=== PATIENT | male | born 1980 | race American Indian/Alaskan Native ===

== ENCOUNTER 2020-05-29 09:20 | Emergency (ER) | payer OTHER, SELFPAY ==
[2020-05-29 09:35] VITALS: BP 127/75; PULSE 70; RESP 16; TEMP 37; O2SAT 100; BMI 32.1
[2020-05-29 10:00] LABS: MANUAL DIFF FLAG NO
[2020-05-29 10:01] LABS: Basophils Percent Auto 0.4 % (0-2); Eosinophils Absolute Auto 0.1 X10*3/uL (0.0-0.4); Eosinophils Percent Auto 1.8 % (0-4); Hematocrit 38.3 % (42-52); Hemoglobin 12.8 g/dl (14.0-18.0); Imm Gran Abs Auto 0.02 X10*3/uL (0.00-0.03); Imm Gran Pct Auto 0.4 % (0.0-0.4); Lymphocytes Absolute Auto 1.9 X10*3/uL (1.2-4.9); Mean Corpuscular HGB Conc 33.4 g/dl (31.0-36.0); Mean Corpuscular Hemoglobin 29.3 pg (27.0-33.0); Mean Corpuscular Volume 87.6 fL (80-98); Mean Platelet Volume 9.7 fL (9.4-12.4); Monocytes Absolute Auto 0.7 X10*3/uL (0.1-1.2); Monocytes Percent Auto 12.3 % (2-11); Neutrophils Absolute Auto 2.9 X10*3/uL (2.0-8.3); Neutrophils Percent Auto 52.1 % (45-73); Platelet Count 157 X10*3/uL (160-400); Red Blood Count 4.37 X10*6/uL (4.60-5.80); Red Cell Distribution Width 11.7 % (11.0-16.0); White Blood Count 5.6 X10*3/uL (4.8-10.8)
[2020-05-29 10:29] LABS: Lactic Acid 1.1 mmol/L (0.5-2.0)
--- NOTE | 2020-05-29 10:34 | PC.NURSE ---
PT DECLINES TO HAVE BLOOD REDRAWN AND WANTS TO BE DISCHARGED, CLAUDIA MCKEE AWARE, PT TO BE DISCHARGED AMA
[2020-05-29 10:37] LABS: Glucose Urine UA NEG (NEG); Leukocyte Esterase Urine NEG (NEG); Nitrite Urine NEG (NEG); PH 5.5 (5.0-8.0); Specific Gravity - Urine 1.025 (1.005-1.025); Urine Blood NEG (NEG); Urine Ketones NEG (NEG); Urine Protein NEG (NEG-TRACE)
[2020-05-29 10:38] LABS: Appearance Urine CLEAR; Color Urine YELLOW
--- NOTE | 2020-05-29 10:46 | ED_ITS ---
HPI - General Adult General Chief complaint: General Medical Stated complaint: INFECTION RT ARM Time Seen by Provider: 05/29/20 09:28 Source: patient Mode of arrival: ambulatory Limitations: no limitations History of Present Illness HPI narrative: 39-year-old male who reports he has history of asthma and longstanding history of IV drug use preferred IV heroin which she last used about 6 hours prior to arrival and presents today with complaint of redness and streaking away type a rash to the right inner arm at the site where he injected heroin last night. States he feels ?fine? however the redness that is streaking weight from the injection site concerned him and came to emergency room. He otherwise denies any fever or chills. No swelling. No chest pain or shortness of breath. No back pain. No GI symptoms. Onset (ago): day(s) Location: right and upper extremity Radiation: non-radiation Severity: mild and moderate Associated symptoms: denies other symptoms Treatments prior to arrival: none Related Data Previous Rx's Medication Instructions Recorded cephalexin [Keflex] 500 mg PO BID #20 cap 05/29/20 doxycycline monohydrate 100 mg PO BID 10 Days #20 cap 05/29/20 Allergies Allergy/AdvReac Type Severity Reaction Status Date / Time No Known Allergies Allergy Unverified 03/16/20 15:58 Review of Systems Review of Systems: Constitutional: No Weight loss, No Fever, No Chills, No Night Sweats, No Fatigue, No Malaise ENT/Mouth: No Hearing loss, No Ear Pain, No Nasal Congestion, No Sinus Pain, No Hoarseness, No sore throat, No Rhinorrhea, No Swallowing Difficulty Eyes: No Eye Pain, No Swelling, No Redness, No Foreign Body, No Discharge, No Vision Changes Cardiovascular: No Chest Pain, No SOB, No Dyspnea on Exertion, No Orthopnea, No Edema, No Palpitations Respiratory: No Cough, No Sputum, No Wheezing, No Smoke Exposure, No Dyspnea Gastrointestinal: No Nausea, No Vomiting, No Diarrhea, No Constipation, No abdominal Pain, No Hematochezia, No Melena Genitourinary: No Flank Pain, No Urinary Flow Changes, No Hesitancy Musculoskeletal: No joint pain, No Myalgias, No Joint Swelling Skin: As noted in HPI Neuro: No Weakness, No Numbness, No Paresthesias, No Loss of Consciousness, No Dizziness, No Headache Psych: No Anxiety/Panic, No Depression, No SI/HI/AH/VH, No Social Issues Heme/Lymph: No Bruising, No Bleeding,No Lymphadenopathy Endocrine: No Polyuria, No Polydipsia, No Temperature Intolerance Yes all other systems are reviewed and are negative [facility] Past Medical History Medical History Asthma Social History Social History Advance Directives: No Advance Directives Information Provided: No Physical Exam Vital Signs: Vital Signs: Last Vital Signs Temp 98.6 F 05/29/20 09:35 Pulse 70 05/29/20 09:35 Resp 16 05/29/20 09:35 BP 127/75 05/29/20 09:35 Pulse Ox 100 05/29/20 09:35 Body Mass Index 32.1 Reviewed Const: General: cooperative and healthy appearing; No acute distress or intoxicated appearing Nutritional Appearance: average body habitus [place] ation/consciousness: patient oriented x3 HENMT: Head: Yes normal to inspection Ears: hearing grossly normal bilaterally Eyes: General: appearance normal, both eyes and all related structures Visual Mace: normal visual mace by confrontation Neck: Neck: Yes normal visual inspection and No tender Thyroid: Thyroid normal Chest: Chest palpation & inspection: normal inspection of the chest Resp: Effort & Inspection: normal respiratory effort Auscultation: clear to auscultation bilaterally Cardio: Jugular venous distension: no JVD Rate: regular rate GI: Inspection: Yes normal to inspection Percussion: Yes normal to percussi on Auscultation: normal bowel sounds : General: Yes no CVA tenderness Back/Spine/Pelvis: Back: no CVA tenderness Skin: General skin exam: no rashes or lesions noted Neuro: General: patient oriented x3 Extrem: Other: General: Yes normal to inspection Course Course Course Narrative: CBC without leukocytosis. Negative lactic acid chemistries hemolyzed patient declined the redraw. AP with IVD cellulitis was slight lymphangitis. No evidence of necrosis. No evidence of abscess formation. No signs of systemic infection. Blood cultures are pending. I did advise him if he gets worsening symptoms or blood cultures come back positive he will need admission at this point he does not want this. He will be discharged home with oral antibiotics with clear return follow-up instructions. Cell [phone] Medical Decision Making Lab Data Lab results reviewed: Yes I reviewed the patient's lab results. Result diagrams: 05/29/20 09:52 05/29/20 09:52 Labs: Lab Results 05/29/20 05/29/20 05/29/20 Range/Units 09:52 09:52 09:52 WBC 5.6 (4.8-10.8) X10*3/uL RBC 4.37 L (4.60-5.80) X10*6/uL Hgb 12.8 L (14.0-18.0) g/dl Hct 38.3 L (42-52) % MCV 87.6 (80-98) fL MCH 29.3 (27.0-33.0) pg MCHC 33.4 (31.0-36.0) g/dl RDW 11.7 (11.0-16.0) % Plt Count 157 L (160-400) X10*3/uL MPV 9.7 (9.4-12.4) fL Immature Gran % (Auto) 0.4 (0.0-0.4) % Neut % (Auto) 52.1 (45-73) % Lymph % (Auto) 33.0 (20-40) % [place] % (Auto) 12.3 H (2-11) % Eos % (Auto) 1.8 (0-4) % Baso % (Auto) 0.4 (0-2) % Lymph # (Auto) 1.9 (1.2-4.9) X10*3/uL [place] # (Auto) 0.7 (0.1-1.2) X10*3/uL Eos # (Auto) 0.1 (0.0-0.4) X10*3/uL Baso # (Auto) 0.0 (0.0-0.2) X10*3/uL Abs Immat Gran (auto) 0.02 (0.00-0.03) X10*3/uL Absolute Neuts (auto) 2.9 (2.0-8.3) X10*3/uL Absolute Nucleated RBC 0.000 (0.0-0.012) X10*3/uL Nucleated RBC % (auto) 0.0 (0.0-0.2) /100WBC Sodium Cancelled Potassium Cancelled Chloride Cancelled Carbon Dioxide Cancelled Anion Gap Cancelled BUN Cancelled Creatinine Cancelled Estim Creat Clear Calc Cancelled Estimated GFR Cancelled Random Glucose Cancelled Lactic Acid 1.1 (0.5-2.0) mmol/L Calcium Cancelled Total Bilirubin Cancelled AST Cancelled ALT Cancelled Alkaline Phosphatase Cancelled Total Protein Cancelled Albumin Cancelled Urine Color Urine Appearance Urine pH (5.0-8.0) Ur Specific [place] (1.005-1.025) Urine Protein (NEG-TRACE) MG/DL Urine Glucose (UA) (NEG) MG/DL Urine Ketones (NEG) MG/DL Urine Blood (NEG) Urine Nitrite (NEG) Ur Leukocyte Esterase (NEG) 05/29/20 Range/Units 10:06 WBC (4.8-10.8) X10*3/uL RBC (4.60-5.80) X10*6/uL Hgb (14.0-18.0) g/dl Hct (42-52) % MCV (80-98) fL MCH (27.0-33.0) pg MCHC (31.0-36.0) g/dl RDW (11.0-16.0) % Plt Count (160-400) X10*3/uL MPV (9.4-12.4) fL Immature Gran % (Auto) (0.0-0.4) % Neut % (Auto) (45-73) % Lymph % (Auto) (20-40) % [place] % (Auto) (2-11) % Eos % (Auto) (0-4) % Baso % (Auto) (0-2) % Lymph # (Auto) (1.2-4.9) X10*3/uL [place] # (Auto) (0.1-1.2) X10*3/uL Eos # (Auto) (0.0-0.4) X10*3/uL Baso # (Auto) (0.0-0.2) X10*3/uL Abs Immat Gran (auto) (0.00-0.03) X10*3/uL Absolute Neuts (auto) (2.0-8.3) X10*3/uL Absolute Nucleated RBC (0.0-0.012) X10*3/uL Nucleated RBC % (auto) (0.0-0.2) /100WBC Sodium Potassium Chloride Carbon Dioxide Anion Gap BUN Creatinine Estim Creat Clear Calc Estimated GFR Random Glucose Lactic Acid (0.5-2.0) mmol/L Calcium Total Bilirubin AST ALT Alkaline Phosphatase Total Protein Albumin Urine Color YELLOW Urine Appearance CLEAR Urine pH 5.5 (5.0-8.0) Ur Specific [place] 1.025 (1.005-1.025) Urine Protein NEG (NEG-TRACE) MG/DL Urine Glucose (UA) NEG (NEG) MG/DL Urine Ketones NEG (NEG) MG/DL Urine Blood NEG (NEG) Urine Nitrite NEG (NEG) Ur Leukocyte Esterase NEG (NEG) Discharge Plan Discharge Clinical Impression: Cellulitis, Lymphangitis, Active intravenous drug use Patient Disposition: Home, Self-Care Instructions: Cellulitis (ED), Polysubstance Abuse (ED) Additional Instructions: Please stop using IV drugs as this can cause serious harm to health and Seek detox as discussed with to follow up with [facility] As it relates to the infection in the right arm Starting antibiotics Have recheck in 2 days We will call you with the blood culture results if positive he will need to come back to the emergency room and may require admission Return if any concerns or worsening symptoms including worsening redness, swelling, pain, fever, chest pain, shortness of breath in addition to any other concerning symptoms. Thank you Prescriptions: New doxycycline monohydrate 100 mg capsule 100 mg PO BID 10 Days Qty: 20 RF: 0 cephalexin [Keflex] 500 mg capsule 500 mg PO BID Qty: 20 RF: 0 Referrals: Luan Waddell DO [Primary Care Provider] - 2 days Juanpablo Ronquillo NP [Emergency Midlevel Provider] - 2 days (Wound check )
[2020-05-29 10:57] LABS: Mucus Urine TRACE /LPF; RBC Urine 0-2 /HPF (0); Squamous Epithelial Cell Urine TRACE /LPF; WBC Urine 0-2 /HPF (0-4)
[2020-05-29 11:21] LABS: Amphetamine Screen Urine Not Detected (Not Detect); Barbiturates, Urine Not Detected (Not Detect); Benzodiazepines Screen Urine Not Detected (Not Detect); Cannabinoid Screen Urine Not Detected (Not Detect); Cocaine Screen Urine Not Detected (Not Detect); Opiate Screen Urine POSITIVE (Not Detect); Phencyclidine Screen Urine Not Detected (Not Detect)
== END 2020-05-29 11:05 | disposition home or self-care (01) ==
PROVIDERS: Nurse Practitioner Primary Care; Emergency Provider Internal Medicine; PCP Family Medicine Adult Medicine
DX: L03.113 Cellulitis of right upper limb (principal); F11.10 Opioid abuse, uncomplicated
CPT/HCPCS: 36415; 80053; 80307; 81001; 83605; 85025; 87040; 99283

== ENCOUNTER 2020-05-30 08:57 | Outpatient (REF) | payer OTHER, SELFPAY | END 2020-05-30 08:58 | disposition home or self-care (01) | LOC: HO.LAB 08:57 | PROVIDERS: Visit Provider Internal Medicine | DX: Z20.828 Contact with and (suspected) exposure to other viral communicable diseases (principal) | CPT/HCPCS: C9803; U0003 ==

== ENCOUNTER → 2020-06-29 09:49 | Outpatient (BNVA) | payer OTHER, SELFPAY | PROVIDERS: PCP Family Medicine Adult Medicine; Visit Provider Nurse Practitioner Psychiatric/Mental Health | DX: F11.99 Opioid use, unspecified with unspecified opioid-induced disorder (principal) | CPT/HCPCS: 80305; 99202; 99211 ==

== ENCOUNTER → 2020-07-13 14:19 | Outpatient (BNVA) | payer OTHER, SELFPAY | PROVIDERS: Visit Provider Nurse Practitioner Psychiatric/Mental Health | DX: F11.99 Opioid use, unspecified with unspecified opioid-induced disorder (principal) | CPT/HCPCS: 80305; 99212 ==

== ENCOUNTER → 2020-07-27 14:49 | Outpatient (BNVA) | payer OTHER, SELFPAY | PROVIDERS: Visit Provider Nurse Practitioner Psychiatric/Mental Health | DX: F11.99 Opioid use, unspecified with unspecified opioid-induced disorder (principal) | CPT/HCPCS: 80305; 99212 ==

== ENCOUNTER → 2020-08-03 14:03 | Outpatient (BNVA) | payer OTHER, SELFPAY | PROVIDERS: Visit Provider Nurse Practitioner Psychiatric/Mental Health | DX: F11.20 Opioid dependence, uncomplicated (principal) | CPT/HCPCS: 80305; 99211 ==

== ENCOUNTER 2020-08-07 13:01 | Outpatient (REF) | payer OTHER, SELFPAY | END 2020-08-07 13:02 | disposition home or self-care (01) | LOC: HO.LAB 13:01 | PROVIDERS: Visit Provider Internal Medicine | DX: Z20.822 Contact with and (suspected) exposure to COVID-19 (principal) | CPT/HCPCS: 36415; C9803; U0003; U0005 ==

== ENCOUNTER 2020-08-09 02:57 | Emergency (ER) | payer OTHER, SELFPAY ==
--- NOTE | ~2020-08-09 | XR_ITS ---
EXAMINATION: CHEST 2 VIEWS CLINICAL INFORMATION: Dyspnea. COMPARISON: 03/30/2015. TECHNIQUE: PA and lateral views of the chest were obtained. FINDINGS: The cardiac silhouette is not enlarged. The mediastinal and hilar contours are unremarkable. There are neither pleural effusions nor pneumothoraces. There are no consolidations. The osseous structures are stable. XR/XR chest 2V IMPRESSION: No evidence for acute disease.
--- NOTE | 2020-08-09 03:12 | ED_ITS ---
HPI - SOB/Dyspnea General Chief Complaint: General Medical Stated Complaint: CHEMICAL REACTION Time Seen by Provider: 08/09/20 03:05 Source: patient Mode of arrival: ambulatory Limitations: no limitations History of Present Illness HPI Narrative: 39 yo male with asthma was using a bleach and some other chemical mixture to clean after that felt like he has had lung irritation and dyspnea since then, no other compliaints MD elicited complaint: shortness of breath and cough Pertinent past history: asthma Onset (ago): day(s) (1) Context: smoke/fume exposure (using bleach and another chemical to clean) Timing: constant Severity: moderate Exacerbating factors: nothing Relieving factors: nothing Known history of: asthma Associated symptoms: denies other symptoms Treatment prior to arrival: none Related Data Previous Rx's Medication Instructions Recorded prednisone 40 mg PO DAILY 4 Days #8 tab 08/09/20 Allergies Allergy/AdvReac Type Severity Reaction Status Date / Time No Known Allergies Allergy Verified 08/09/20 03:30 Review of Systems Review of Systems: Constitutional : No Fever, No Chills ENT/Mouth : No sore throat, No Rhinorrhea, No Swallowing Difficulty Eyes: No Eye Pain, No Swelling, No Redness Cardiovascular : No Chest Pain, positive SOB, No Orthopnea, no Edema Respiratory : No Cough, No Sputum, No Wheezing, positive dyspnea Gastrointestinal : No Nausea, No Vomiting, No Diarrhea, No abdominal Pain Genitourinary : No Dysuria, No Urinary Frequency, No Hematuria Musculoskeletal : No joint pain, No Myalgias Skin : No Skin Lesions, No rash Neuro : No Weakness, No Numbness, No Dizziness, No Headache All other systems reviewed and are negative [facility] Past Medical History Attestation statement: The following information was validated with the patient. Medical History Asthma Social History Social History (Updated 08/09/20 @ 03:14 by Tammy Bender DO) Smoking Status: Never smoker Advance Directives: No Advance Directives Information Provided: No Physical Exam Vital Signs: Vital Signs: Last Vital Signs Temp 98.1 F 08/09/20 03:26 Pulse 74 08/09/20 03:26 Resp 18 08/09/20 03:26 BP 136/87 08/09/20 03:26 Pulse Ox 98 08/09/20 03:26 Body Mass Index 32.3 Appearance: Alert. Oriented X3. No acute distress. Eyes: Pupils equal, round and reactive to light. ENT: Pharynx normal. Neck: Normal inspection. Neck supple. CVS: Normal heart rate and rhythm. Pulses normal. Respiratory: No respiratory distress. Breath sounds normal. Abdomen: Soft and non-tender. Skin: Skin warm and dry. Normal skin color. Normal skin turgor. Extremities: No lower extremity edema. No calf ttp Neuro: Oriented X 3. No motor deficit. No sensory deficit. MDM - SOB/Dyspnea MDM Narrative Medical decision making narrative: 39 yo male with asthma exposed to chemical fumes c/o lung irritation and tightness since - not toxic, will give INH as well as CXR - dispo per results and findings. May need steroids for pneumonitis Discharge Plan Discharge Clinical Impression: Pneumonitis due to fumes Patient Disposition: Home, Self-Care Instructions: Pneumonitis (ED) Additional Instructions: return to ED for any worsening symptoms or concerns USE INHALER NEEDED FOR DYSPNEA OR COUGH 2 PUFFS EVERY 4 HOURS Prescriptions: New prednisone 20 mg tablet 40 mg PO DAILY 4 Days Qty: 8 RF: 0 Stand Alone Forms: Work/School Release
[2020-08-09 03:26] VITALS: BP 136/87; PULSE 74; RESP 18; TEMP 36.7; O2SAT 98; BMI 32.3
[2020-08-09] MEDS: predniSONE 20 MG TABLET 40 MG PO (04:07)
[2020-08-09] MEDS: Albuterol Sulfate 90 MCG 8 GM INHALER 2 PUFF INHALE (04:08)
== END 2020-08-09 04:12 | disposition home or self-care (01) ==
PROVIDERS: Emergency Provider Emergency Medicine; PCP Family Medicine Adult Medicine
DX: J68.0 Bronchitis and pneumonitis due to chemicals, gases, fumes and vapors (principal)
CPT/HCPCS: 71046; 99283

== ENCOUNTER → 2020-08-10 15:34 | Outpatient (BNVA) | payer OTHER, SELFPAY | PROVIDERS: Visit Provider Nurse Practitioner Psychiatric/Mental Health | DX: F11.99 Opioid use, unspecified with unspecified opioid-induced disorder (principal) | CPT/HCPCS: 80305; 99212 ==

== ENCOUNTER → 2020-08-17 15:49 | Outpatient (BNVA) | payer OTHER, SELFPAY | PROVIDERS: Visit Provider Nurse Practitioner Psychiatric/Mental Health | DX: F11.99 Opioid use, unspecified with unspecified opioid-induced disorder (principal) | CPT/HCPCS: 80305; 99212 ==

== ENCOUNTER → 2020-08-25 14:33 | Outpatient (BNVA) | payer OTHER, SELFPAY | PROVIDERS: Visit Provider Nurse Practitioner Psychiatric/Mental Health | DX: Z51.81 Encounter for therapeutic drug level monitoring (principal) ==

== ENCOUNTER → 2020-08-31 13:57 | Outpatient (BNVA) | payer OTHER, SELFPAY | PROVIDERS: Visit Provider Nurse Practitioner Psychiatric/Mental Health | DX: F11.99 Opioid use, unspecified with unspecified opioid-induced disorder (principal) | CPT/HCPCS: 80305; 99212 ==

== ENCOUNTER 2020-09-07 15:39 | Outpatient (REF) | payer OTHER, SELFPAY ==
[2020-09-07 17:04] LABS: Alanine Aminotransferase 16 U/L (0-40); Albumin Level 4.3 g/dL (3.5-5.0); Alkaline Phosphatase 62 U/L (39-117); Aspartate Amino Transferase 24 U/L (5-37); Bilirubin Direct 0.3 mg/dL (0.0-0.5); Bilirubin Total 0.7 mg/dL (0.0-1.0); Total Protein 7.6 g/dL (6.5-8.0)
[2020-09-08 04:23] LABS: HBS Num1 > 1000.00 mIU/mL (0-7.99); HBc Num1 0.06 S/CO (0.00-0.79); HIV AB/AG Nonreactive (Nonreactive); HIV Num 1 0.08 S/CO (0.00-0.99); Hepatitis B Core Antibody Nonreactive (Nonreactive); ~Hepatitis B Surface Antibody REACTIVE (Nonreactive)
[2020-09-08 04:25] LABS: Hepatitis A Antibody IgM 0.18 Index (0-0.79); ~Hepatitis A Antibody IgM Nonreactive (Nonreactive)
[2020-09-08 04:40] LABS: HBsAGNum1 0.16 S/CO (0.00-0.99); Hepatitis A Antibody IgG REACTIVE (Nonreactive); Hepatitis B Surface Antigen Negative (Negative); ~Hepatitis A Antibody IgG 10.26 S/CO (0.00-0.99)
[2020-09-13 08:06] LABS: Buprenorphine >1000 ng/mL; Norbuprenorphine 72 ng/mL
== END 2020-09-07 15:40 | disposition home or self-care (01) ==
LOC: HO.LAB 15:39
PROVIDERS: PCP Family Medicine Adult Medicine; Visit Provider Nurse Practitioner Psychiatric/Mental Health
DX: F11.20 Opioid dependence, uncomplicated (principal); Z79.899 Other long term (current) drug therapy
CPT/HCPCS: 36415; 80076; 80305; 80348; 86704; 86706; 86708; 86709; 87340; 87389; 99212

== ENCOUNTER 2020-09-14 14:13 | Outpatient (REF) | payer OTHER, SELFPAY ==
[2020-09-16 18:56] LABS: Fentanyl, Ur 0.9 ng/mL (<0.5)
[2020-09-19 10:46] LABS: Buprenorphine >1000 ng/mL; Norbuprenorphine 17 ng/mL
== END 2020-09-14 14:14 | disposition home or self-care (01) ==
LOC: CF 14:13
PROVIDERS: PCP Family Medicine Adult Medicine; Visit Provider Nurse Practitioner Psychiatric/Mental Health
DX: F11.20 Opioid dependence, uncomplicated (principal); Z51.81 Encounter for therapeutic drug level monitoring
CPT/HCPCS: 80305; 80348; 80354; 99212

== ENCOUNTER → 2020-09-21 14:03 | Outpatient (BNVA) | payer OTHER, SELFPAY | PROVIDERS: PCP Family Medicine Adult Medicine; Visit Provider Nurse Practitioner Psychiatric/Mental Health | DX: F11.99 Opioid use, unspecified with unspecified opioid-induced disorder (principal) | CPT/HCPCS: 80305; 99212 ==

== ENCOUNTER → 2020-09-28 11:07 | Outpatient (BNVA) | payer OTHER, SELFPAY | PROVIDERS: PCP Family Medicine Adult Medicine; Visit Provider Nurse Practitioner Psychiatric/Mental Health | DX: F11.99 Opioid use, unspecified with unspecified opioid-induced disorder (principal) | CPT/HCPCS: 80305; 99212 ==

== ENCOUNTER 2020-10-05 11:51 | Outpatient (REF) | payer OTHER, SELFPAY ==
[2020-10-08 06:27] LABS: Fentanyl, Ur NEGATIVE ng/mL (<0.5); Norfentanyl, Ur NEGATIVE ng/mL (<0.5)
[2020-10-09 09:38] LABS: Buprenorphine 670 ng/mL; Norbuprenorphine 340 ng/mL
== END 2020-10-05 11:52 | disposition home or self-care (01) ==
LOC: HO.LAB 11:51
PROVIDERS: PCP Family Medicine Adult Medicine; Visit Provider Nurse Practitioner Psychiatric/Mental Health
DX: F11.99 Opioid use, unspecified with unspecified opioid-induced disorder (principal); Z79.899 Other long term (current) drug therapy
CPT/HCPCS: 80305; 80348; 80354; 99212

== ENCOUNTER → 2020-10-12 11:52 | Outpatient (BNVA) | payer OTHER, SELFPAY | PROVIDERS: Visit Provider Nurse Practitioner Psychiatric/Mental Health | DX: F11.20 Opioid dependence, uncomplicated (principal); Z51.81 Encounter for therapeutic drug level monitoring; Z79.899 Other long term (current) drug therapy | CPT/HCPCS: 99211 ==

== ENCOUNTER → 2020-10-26 11:52 | Outpatient (BNVA) | payer OTHER, SELFPAY | PROVIDERS: Visit Provider Nurse Practitioner Psychiatric/Mental Health | DX: F11.99 Opioid use, unspecified with unspecified opioid-induced disorder (principal) | CPT/HCPCS: 80305; 99212 ==

== ENCOUNTER → 2020-11-02 11:55 | Outpatient (BNVA) | payer OTHER, SELFPAY | PROVIDERS: Visit Provider Nurse Practitioner Psychiatric/Mental Health | DX: F11.99 Opioid use, unspecified with unspecified opioid-induced disorder (principal) | CPT/HCPCS: 80305; 99212 ==

== ENCOUNTER → 2020-11-16 11:58 | Outpatient (BNVA) | payer OTHER, SELFPAY | PROVIDERS: Visit Provider Nurse Practitioner Psychiatric/Mental Health | DX: Z51.81 Encounter for therapeutic drug level monitoring (principal); Z79.899 Other long term (current) drug therapy | CPT/HCPCS: 80305; 99211 ==

== ENCOUNTER → 2020-11-30 11:52 | Outpatient (BNVA) | payer OTHER, SELFPAY | PROVIDERS: Visit Provider Nurse Practitioner Psychiatric/Mental Health | DX: F11.99 Opioid use, unspecified with unspecified opioid-induced disorder (principal) | CPT/HCPCS: 80305; 99212 ==

== ENCOUNTER 2020-12-14 12:03 | Outpatient (REF) | payer OTHER, SELFPAY ==
[2020-12-17 09:39] LABS: Fentanyl, Ur Negative
[2020-12-17 09:40] LABS: Norfentanyl, Ur Negative
[2020-12-19 14:06] LABS: Buprenorphine 160 ng/mL; Norbuprenorphine 180 ng/mL
== END 2020-12-14 12:04 | disposition home or self-care (01) ==
LOC: HO.LAB 12:03
PROVIDERS: Visit Provider Nurse Practitioner Psychiatric/Mental Health
DX: F11.20 Opioid dependence, uncomplicated (principal)
CPT/HCPCS: 80305; 80348; 80354; 99212

== ENCOUNTER → 2020-12-19 13:44 | Outpatient (BNVA) | payer OTHER, SELFPAY | PROVIDERS: Visit Provider Nurse Practitioner Psychiatric/Mental Health | DX: Z51.81 Encounter for therapeutic drug level monitoring (principal) | CPT/HCPCS: 80305; 99211 ==

== ENCOUNTER → 2020-12-28 11:57 | Outpatient (BNVA) | payer OTHER, SELFPAY | PROVIDERS: Visit Provider Nurse Practitioner Psychiatric/Mental Health | DX: Z51.81 Encounter for therapeutic drug level monitoring (principal); F11.99 Opioid use, unspecified with unspecified opioid-induced disorder | CPT/HCPCS: 80305; 99212 ==

== ENCOUNTER → 2021-01-11 14:47 | Outpatient (BNVA) | payer OTHER, SELFPAY | PROVIDERS: Visit Provider Nurse Practitioner Psychiatric/Mental Health | DX: Z51.81 Encounter for therapeutic drug level monitoring (principal) ==

== ENCOUNTER 2021-01-12 10:32 | Outpatient (REF) | payer OTHER, SELFPAY | END 2021-01-12 10:33 | disposition home or self-care (01) | LOC: HO.LAB 10:32 | PROVIDERS: Visit Provider Nurse Practitioner Psychiatric/Mental Health | DX: F11.99 Opioid use, unspecified with unspecified opioid-induced disorder (principal) | CPT/HCPCS: 80305; 80348; 80354; 80364; 80365; 99211 ==

== ENCOUNTER → 2021-02-01 15:18 | Outpatient (BNVA) | payer OTHER, SELFPAY | PROVIDERS: Visit Provider Nurse Practitioner Psychiatric/Mental Health | DX: F11.20 Opioid dependence, uncomplicated (principal); Z51.81 Encounter for therapeutic drug level monitoring; Z79.899 Other long term (current) drug therapy | CPT/HCPCS: 80305; 99212 ==

== ENCOUNTER → 2021-02-22 10:16 | Outpatient (BNVA) | payer OTHER, SELFPAY | PROVIDERS: Visit Provider Nurse Practitioner Psychiatric/Mental Health | DX: Z51.81 Encounter for therapeutic drug level monitoring (principal); F11.99 Opioid use, unspecified with unspecified opioid-induced disorder | CPT/HCPCS: 80305; 99212 ==

== ENCOUNTER 2021-03-14 11:30 | Emergency (ER) | payer OTHER, SELFPAY ==
[2021-03-14 12:00] VITALS: BP 120/85; PULSE 72; RESP 18; TEMP 36.8; O2SAT 96; BMI 29.9
--- NOTE | 2021-03-14 13:13 | ED_ITS ---
HPI - Ear Problem General Chief complaint: Ear Problems Stated complaint: ear infection? Time Seen by Provider: 03/14/21 13:01 Source: patient Mode of arrival: ambulatory Limitations: no limitations History of Present Illness HPI Narrative: This is a 40-year-old male who presents to the emergency department with concerns of foreign body in his left ear. [place] and he felt that something went into his ear and it started bothering him on that day. Since that day he felt discomfort in his left ear as well as continuous high-pitched ringing. To this day the ringing persist and is low pitched in nature. He states he is able to hear that the ringing seems to not go away. He also mentions that he has family history of tinnitus. He denies any other symptoms at this time. He denies loss of hearing, trauma to the area, and ear discharge. He also denies fevers chills, shortness of breath, chest pain. MD Complaint: other (Ringing in the ear) Location: left ear Duration: constant Severity: mild Relieving factors: nothing Exacerbating factors: nothing Discharge from ear: no Treatment prior to arrival: none Related Data Previous Rx's Medication Instructions Recorded prednisone 20 mg tablet 40 mg PO DAILY 4 Days #8 tab 08/09/20 Allergies Allergy/AdvReac Type Severity Reaction Status Date / Time No Known Allergies Allergy Verified 03/14/21 12:00 Review of Systems Review of Systems: Constitutional : No Weight loss, No Fever, No Chills, No Night Sweats, No Fatigue, No Malaise ENT/Mouth : No Hearing loss, No Ear Pain, pos ringing in the left ear,no Nasal Congestion, No Sinus Pain, No Hoarseness, No sore throat, No Rhinorrhea, No Swallowing Difficulty Eyes: No Eye Pain, No Swelling, No Redness, No Foreign Body, No Discharge, No Vision Changes Cardiovascular : No Chest Pain, No SOB, No Dyspnea on Exertion, No Orthopnea, No Edema, No Palpitations Respiratory : No Cough, No Sputum, No Wheezing, No Smoke Exposure, No Dyspnea Gastrointestinal : No Nausea, No Vomiting, No Diarrhea, No Constipation, No abdominal Pain, Genitourinary : no irregular bleeding, No Dysuria, No Urinary Frequency, No Hematuria, No Urinary Incontinence, No Urgency, No Flank Pain, No Urinary Flow Changes, No Hesitancy Musculoskeletal : No joint pain, No Myalgias, No Joint Swelling Skin : No Skin Lesions, No rash Neuro : No Weakness, No Numbness, No Paresthesias, No Loss of Consciousness, No Dizziness, No Headache Psych : No Anxiety/Panic, No Depression, No SI/HI/AH/VH, No Social Issues, Heme/Lymph: No Bruising, No Bleeding,No Lymphadenopathy Endocrine : No Polyuria, No Polydipsia Yes all other systems are reviewed and are negative [facility] Past Medical History Medical History Asthma Social History Social History (Updated 08/09/20 @ 03:14 by Tammy Bender DO) Advance Directives: No Advance Directives Information Provided: No Physical Exam Vital Signs: Vital Signs: Last Vital Signs Temp 98.3 F 03/14/21 12:00 Pulse 72 03/14/21 12:00 Resp 18 03/14/21 12:00 BP 120/85 03/14/21 12:00 Pulse Ox 96 03/14/21 12:00 Body Mass Index 29.9 vital signs have been reviewed as normal and appeared to be correct. Blood pressure normal. Heart rate normal. Respiration rate normal. Temperature normal. Oxygen saturation normal. Appearance: Alert. Oriented X3. No acute distress. Head: Normal external exam. Normocephalic. Atraumatic. No [place] signs noted. No raccoon eyes noted Eyes: PERRLA. EOMI. Conjunctiva and sclera normal. Eyelids normal. ENT: EAC normal. TM's Normal. Pharynx normal. Uvula midline. Moist mucous membranes. No trismus noted. No drooling noted. No muffled voice noted. Gross hearing is intact bilaterally, no foreign bodies, or insects noted to ear canal. Minimal cerumen noted bilaterally Neck: Normal inspection. Neck supple. FROM. No adenopathy. Thyroid Normal. No meningeal signs. No neck mass noted. CVS: Normal heart rate and rhythm. Heart sound normal. Pulses normal throughout. No murmurs/rales/gallops. Respiratory: No respiratory distress. Painless inspiration. Breath sounds normal. No wheezes/rales/rhonchi noted. Chest nontender. No accessory muscle usage noted or decreased air movement noted. Abdomen: Soft and nontender. Bowel sounds normal in all 4 quadrants. No distention noted. No organomegaly noted. No visible injury noted. Back: No CVA tenderness. Full range of motion noted. No rashes/lesion/induration/fluctuance or signs of infection noted. Skin: Skin warm and dry. Normal skin color. Normal skin turgor. No rashes/lesions/lacerations noted. Extremities: No lower extremity edema. Extremities exhibit normal range of motion. Extremities nontender. Neuro: Oriented X 3. No motor deficit. No sensory deficit. Reflexes normal. Normal steady gait. No focal neuro deficits noted. Vascular: + radial pulses/+ 2 distal pedal pulses/+2 dorsalis pedis b/l. Normal cap refill. No cyanosis noted to upper extremity nails and lower extremity toes nails. Course Course Course Narrative: This is a 40-year-old male who presented with concerns of a foreign body in his left ear. He thought he had a bug in his ear after being [place]. Upon inspection there is no evident intact, or foreign body in the left ear. Bilateral ears were free of foreign bodies contained minimal cerumen, tympanic membranes were pearly white with a good cone of light, no erythema or effusions noted. There is no pain to palpation of the pinna, tragus or manipulation of the ear. Upon examination patient reports constant low pitched tinnitus that has been present since Friday (5 days ago). And his gross hearing was intact bilaterally, he was able to hear a finger rub in bilateral ears. At this time the most likely diagnosis is tinnitus. Patient has been educated on his diagnosis, he has no further questions he will follow-up with his PCP if symptoms worsen and we will also provide him with a referral to [facility] for him to follow-up with. Discharge Plan Discharge Clinical Impression: Left-sided tinnitus Patient Disposition: Home, Self-Care Instructions: Tinnitus (ED) Additional Instructions: Follow-up with [facility], and/or primary care provider. You can try following a low-salt diet, and focus on hydration. If symptoms worsen, or if he becomes febrile, where lose hearing, it is important that you immediately seek medical attention, or return to the emergency department. Prescriptions: No Action prednisone 20 mg tablet 40 mg PO DAILY 4 Days Qty: 8 RF: 0 Referrals: Everton Hansen [Physician] - 03/14/21
== END 2021-03-14 13:20 | disposition home or self-care (01) ==
PROVIDERS: Emergency Provider Emergency Medicine; PCP Family Medicine Adult Medicine
DX: H93.12 Tinnitus, left ear (principal); Z79.899 Other long term (current) drug therapy
CPT/HCPCS: 99283

== ENCOUNTER → 2021-03-15 10:05 | Outpatient (BNVA) | payer OTHER, SELFPAY | PROVIDERS: Visit Provider Nurse Practitioner Psychiatric/Mental Health | DX: Z51.81 Encounter for therapeutic drug level monitoring (principal); F11.90 Opioid use, unspecified, uncomplicated | CPT/HCPCS: 80305; 99212 ==

== ENCOUNTER 2021-03-26 23:35 | Emergency (ER) | payer OTHER, SELFPAY ==
[2021-03-26 23:59] VITALS: BP 129/74; PULSE 91; RESP 20; TEMP 36.8; O2SAT 98; BMI 29.9
--- NOTE | 2021-03-27 00:43 | ED.EAR ---
HPI - Ear Problem General Chief complaint: Ear Problems Stated complaint: Ear pain Time Seen by Provider: 03/27/21 00:43 Source: patient Mode of arrival: ambulatory Limitations: no limitations History of Present Illness HPI Narrative: patient with left ear pain. Patient states he has pain and ringing but also noticed a possible dental infection left mandible Complaint: ear pain Location: left ear Duration: intermittent Severity: mild Associated symptoms ear: other (dental infection) Related Data Home Medications Medication Instructions Recorded Confirmed buprenorphine 12 mg-naloxone 3 mg 1 strip SUBLINGUAL DAILY 03/27/21 03/27/21 sublingual film Previous Rx's Medication Instructions Recorded amoxicillin 875 mg-potassium 1 tab PO BID #20 tab 03/27/21 clavulanate 125 mg tablet (Augmentin) Allergies Allergy/AdvReac Type Severity Reaction Status Date / Time No Known Allergies Allergy Verified 03/14/21 12:00 Review of Systems Constitutional: Constitutional: Reports no additional constitutional complaints Eyes: Eyes: Reports no additional eye complaints ENT: Denies dizziness Cardiovascular: Cardiovascular: Reports no additional cardiovascular complaints Respiratory: Respiratory: Reports as per HPI Gastrointestinal: Gastrointestinal: Reports no additional gastrointestinal complaints Musculoskeletal: Musculoskeletal: Reports no additional musculoskeletal complaints Integumentary/Breasts: Skin/Breast: Denies rash Neurologic: Reports system reviewed and no additional complaints, except as documented, Denies dizziness and Denies Sensory deficit (Neuro) Psychiatric: Psychiatric: Denies anxiety PMF Past Medical History Medical History Asthma Social History Social History Alcohol intake: unknown Patient Tobacco Use Status: Tobacco use Unknown Use of substances other than those prescribed or required for medical reasons: Unknown Advance Directives: No Physical Exam Vital Signs: Vital Signs: Last Vital Signs Temp 98.2 F 03/26/21 23:59 Pulse 91 03/26/21 23:59 Resp 20 03/26/21 23:59 BP 129/74 03/26/21 23:59 Pulse Ox 98 03/26/21 23:59 Body Mass Index 29.9 Const: General: healthy appearing Nutritional Appearance: average body habitus Orientation/consciousness: oriented to person and patient oriented x3 Limitations: no limitations HENMT: Other: left lower molars with caries down to the gum. slight erythema and swelling to gum. TMs clear bilaterally Head: Yes normal to inspection Ears: external ears normal General nose exam: Normal external nose present Mouth: Normal oral and palatal mucosa present and oropharynx normal Throat: Yes posterior oropharynx normal Eyes: General: appearance normal, both eyes and all related structures Neck: Other: supple Neck: Yes normal visual inspection Chest: Chest palpation & inspection: normal inspection of the chest Resp: Auscultation: clear to auscultation bilaterally Cardio: Jugular venous distension: no JVD Rate: regular rate Rhythm: regular rhythm Heart sounds: S1 normal heart sound present and S2 normal heart sound present GI: Inspection: Yes normal to inspection Palpation (GI): Soft to palpation, nontender and No hepatosplenomegaly present Auscultation: normal bowel sounds : General: Yes no CVA tenderness Back/Spine/Pelvis: Back: no CVA tenderness Skin: General skin exam: no rashes or lesions noted Neuro: General: oriented to person and patient oriented x3 Cranial nerves: Yes CN's II-XII intact bilaterally Motor exam (neuro): 5/5 motor strength present throughout Sensory Exam: No Sensory deficit (Neuro) Extrem: General: Yes normal to inspection Psych: Appearance: grossly normal Course Reevaluation(s) Reevaluation #1: patient with dental infection that could be the cause of his ear pain and tinnitus. Will treat with augmentin Time: 00:50 Discharge Plan Discharge Clinical Impression: Dental caries, Dental infection Patient Disposition: Home, Self-Care Instructions: Dental Abscess (ED) Prescriptions: New amoxicillin-pot clavulanate [Augmentin] 875-125 mg tablet 1 tab PO BID Qty: 20 RF: 0 No Action buprenorphine-naloxone 12-3 mg film 1 strip sublingual DAILY RF: 0 Referrals: Everton Hansen [Physician] - 5 days
[2021-03-27] MEDS: Amoxicillin/Potassium Clav 875 MG TABLET PO (00:56)
== END 2021-03-27 01:11 | disposition home or self-care (01) ==
PROVIDERS: Emergency Provider Emergency Medicine; PCP Family Medicine Adult Medicine
DX: K04.7 Periapical abscess without sinus (principal); K02.9 Dental caries, unspecified; H92.02 Otalgia, left ear; Z79.899 Other long term (current) drug therapy
CPT/HCPCS: 99283; 99284

== ENCOUNTER 2021-04-05 10:35 | Outpatient (REF) | payer OTHER, SELFPAY ==
[2021-04-05 18:01] LABS: Fentanyl, urine Not Detected (Not Detect)
== END 2021-04-05 10:36 | disposition home or self-care (01) ==
LOC: HO.LAB 10:35
PROVIDERS: Internal Medicine; Visit Provider Nurse Practitioner Psychiatric/Mental Health
DX: F11.20 Opioid dependence, uncomplicated (principal)
CPT/HCPCS: 36415; 80305; 80307; 80348; 80362; 99212

== ENCOUNTER 2021-04-26 11:38 | Outpatient (REF) | payer OTHER, SELFPAY ==
[2021-04-26 17:18] LABS: Fentanyl, urine Not Detected (Not Detect)
== END 2021-04-26 11:39 | disposition home or self-care (01) ==
LOC: HO.LAB 11:38
PROVIDERS: Visit Provider Nurse Practitioner Psychiatric/Mental Health
DX: F11.90 Opioid use, unspecified, uncomplicated (principal); Z51.81 Encounter for therapeutic drug level monitoring; Z79.899 Other long term (current) drug therapy
CPT/HCPCS: 80305; 80307; 80348; 80362; 99212

== ENCOUNTER 2021-04-30 19:00 | Emergency (ER) | payer OTHER, SELFPAY ==
[2021-04-30 19:24] VITALS: BP 137/83; PULSE 98; RESP 18; TEMP 36.9; O2SAT 97; BMI 29.5
--- NOTE | 2021-04-30 20:21 | ED.EAR ---
HPI - Ear Problem General Chief complaint: Ear Problems Stated complaint: ear infection? Time Seen by Provider: 04/30/21 20:21 Source: patient Mode of arrival: ambulatory Limitations: no limitations History of Present Illness HPI Narrative: Patient with history of chronic tinnitus for last 2 months seen on multiple doctors comes here for same felt slightly dizzy earlier. Seen his PCP today also were advised him to go to PCP. No head injury no headache Related Data Previous Rx's Medication Instructions Recorded buprenorphine 12 mg-naloxone 3 mg 1 film SUBLINGUAL DAILY #14 ea 04/26/21 sublingual film Allergies Allergy/AdvReac Type Severity Reaction Status Date / Time No Known Allergies Allergy Verified 04/26/21 11:49 Review of Systems Review of Systems: Yes all other systems are reviewed and are negative PMFSH Past Medical History Medical History Asthma Opioid use disorder Social History Social History Alcohol intake: unknown Patient Tobacco Use Status: Tobacco use Unknown Advance Directives: No Advance Directives Information Provided: Yes Physical Exam Vital Signs: Vital Signs: Last Vital Signs Temp 98.5 F 04/30/21 19:24 Pulse 98 04/30/21 19:24 Resp 18 04/30/21 19:24 BP 137/83 04/30/21 19:24 Pulse Ox 97 04/30/21 19:24 Body Mass Index 29.5 Appearance: Alert. Oriented X3. No acute distress. Eyes: PERRLA, No Nystagmus ENT: Pharynx normal. Oral Mucosa moist, tympanic membrane intact bilateral no fluid noticed Neck: Normal inspection. Neck supple. CVS: Normal heart rate and rhythm. Pulses normal. Respiratory: No respiratory distress. Equal air entry bilateral, no wheezing/rales/rhonchi Abdomen: Soft and nontender. Bowel sounds are present, Skin: Skin warm and dry. Normal skin color. Normal skin turgor. Extremities: No lower extremity edema. No calf tenderness Neuro: Oriented X 3. No motor deficit. No sensory deficit.No cerebellar signs , cranial nerves II-XII intact Discharge Plan Discharge Clinical Impression: Tinnitus of left ear Patient Disposition: Home, Self-Care Instructions: Tinnitus (ED) Additional Instructions: Use masking device/headphones Follow with the ENT Prescriptions: No Action buprenorphine-naloxone 12-3 mg film 1 film sublingual DAILY Qty: 14 RF: 0 Referrals: Everton Hansen [Physician] - 1 week Interventions: ED Discharge Assessment Last Done: 04/30/21 20:33 Discharge Date/Time: 04/30/21 20:34
== END 2021-04-30 20:34 | disposition home or self-care (01) ==
PROVIDERS: Emergency Provider Internal Medicine
DX: H93.12 Tinnitus, left ear (principal); J45.909 Unspecified asthma, uncomplicated
CPT/HCPCS: 99283

== ENCOUNTER → 2021-05-10 11:01 | Outpatient (BNVA) | payer OTHER, MEDICAID, SELFPAY | PROVIDERS: Visit Provider Nurse Practitioner Psychiatric/Mental Health | DX: Z51.81 Encounter for therapeutic drug level monitoring (principal); F11.90 Opioid use, unspecified, uncomplicated | CPT/HCPCS: 80305; 99212 ==

== ENCOUNTER → 2021-06-07 15:18 | Outpatient (BNVA) | payer OTHER, MEDICAID, SELFPAY | PROVIDERS: Visit Provider Nurse Practitioner Psychiatric/Mental Health | DX: Z51.81 Encounter for therapeutic drug level monitoring (principal); F11.20 Opioid dependence, uncomplicated | CPT/HCPCS: 80305; 99212 ==

== ENCOUNTER 2021-06-28 15:18 | Outpatient (REF) | payer OTHER, MEDICAID, SELFPAY | END 2021-06-28 15:19 | disposition home or self-care (01) | LOC: HO.LNP 15:18 | PROVIDERS: Visit Provider Nurse Practitioner Psychiatric/Mental Health | DX: F11.20 Opioid dependence, uncomplicated (principal); Z79.899 Other long term (current) drug therapy | CPT/HCPCS: 80305; 80348; 80362; 99212 ==

== ENCOUNTER → 2021-08-09 16:01 | Outpatient (BNVA) | payer OTHER, MEDICAID, SELFPAY | PROVIDERS: Visit Provider Nurse Practitioner Psychiatric/Mental Health ==

== ENCOUNTER → 2021-08-29 13:38 | Outpatient (BNVA) | payer OTHER, MEDICAID, SELFPAY | PROVIDERS: Visit Provider Internal Medicine | DX: Z51.81 Encounter for therapeutic drug level monitoring (principal); F11.20 Opioid dependence, uncomplicated | CPT/HCPCS: 80305 ==

== ENCOUNTER → 2021-09-06 12:24 | Outpatient (BNVA) | payer OTHER, MEDICAID, SELFPAY | PROVIDERS: Visit Provider Nurse Practitioner Psychiatric/Mental Health | DX: Z51.81 Encounter for therapeutic drug level monitoring (principal); F11.20 Opioid dependence, uncomplicated | CPT/HCPCS: 99212 ==

== ENCOUNTER → 2021-09-25 10:17 | Outpatient (BNVA) | payer SELFPAY | PROVIDERS: Visit Provider Physician Assistant Medical | DX: Z02.79 Encounter for issue of other medical certificate (principal) ==

== ENCOUNTER → 2021-10-11 13:09 | Outpatient (BNVA) | payer OTHER, SELFPAY | PROVIDERS: Visit Provider Nurse Practitioner Psychiatric/Mental Health | DX: Z51.81 Encounter for therapeutic drug level monitoring (principal); F11.20 Opioid dependence, uncomplicated | CPT/HCPCS: 80305; 99212 ==

== ENCOUNTER → 2021-11-08 13:42 | Outpatient (BNVA) | payer OTHER, SELFPAY | PROVIDERS: Visit Provider Nurse Practitioner Psychiatric/Mental Health | DX: Z51.81 Encounter for therapeutic drug level monitoring (principal); F11.20 Opioid dependence, uncomplicated | CPT/HCPCS: 80305; 99212 ==

== ENCOUNTER 2021-11-16 14:48 | Emergency (ER) | payer OTHER, SELFPAY ==
[2021-11-16 15:04] VITALS: BP 127/84; PULSE 85; RESP 16; TEMP 36.1; O2SAT 99; BMI 30.8
--- NOTE | 2021-11-16 15:12 | PC.NURSE ---
patient made aware of current vital signs in triage- patient states that he is feeling better and does not want to stay to see a physician, patient encouraged to stay but states that he will follow up with his primary or return to ED if not feeling well.
== END 2021-11-16 15:25 | disposition left against medical advice (07) ==
LOC: HO.ED 15:18
PROVIDERS: Emergency Provider Emergency Medicine; PCP Internal Medicine
DX: I10 Essential (primary) hypertension (principal)
CPT/HCPCS: 99281

== ENCOUNTER → 2021-12-27 13:58 | Outpatient (BNVA) | payer OTHER, SELFPAY | PROVIDERS: PCP Internal Medicine; Visit Provider Nurse Practitioner Psychiatric/Mental Health | DX: Z51.81 Encounter for therapeutic drug level monitoring (principal); F11.21 Opioid dependence, in remission | CPT/HCPCS: 80305; 99212 ==

== ENCOUNTER → 2022-02-08 11:08 | Outpatient (BNVA) | payer OTHER, SELFPAY | PROVIDERS: PCP Internal Medicine; Visit Provider Nurse Practitioner Psychiatric/Mental Health | DX: F11.21 Opioid dependence, in remission (principal); Z51.81 Encounter for therapeutic drug level monitoring; Z79.899 Other long term (current) drug therapy | CPT/HCPCS: 80305; 99212 ==

== ENCOUNTER → 2022-03-08 11:10 | Outpatient (BNVA) | payer OTHER, SELFPAY | PROVIDERS: PCP Internal Medicine; Visit Provider Nurse Practitioner Psychiatric/Mental Health | DX: F11.21 Opioid dependence, in remission (principal); Z51.81 Encounter for therapeutic drug level monitoring; Z79.899 Other long term (current) drug therapy | CPT/HCPCS: 80305; 99212 ==

== ENCOUNTER → 2022-05-16 12:01 | Outpatient (BNVA) | payer OTHER, SELFPAY | PROVIDERS: PCP Internal Medicine; Visit Provider Nurse Practitioner Psychiatric/Mental Health | DX: F11.21 Opioid dependence, in remission (principal); Z79.899 Other long term (current) drug therapy; Z51.81 Encounter for therapeutic drug level monitoring | CPT/HCPCS: 99212 ==

== ENCOUNTER → 2022-05-31 13:00 | Outpatient (BNVA) | payer OTHER, SELFPAY | PROVIDERS: PCP Internal Medicine; Visit Provider Nurse Practitioner Psychiatric/Mental Health | DX: F11.21 Opioid dependence, in remission (principal) | CPT/HCPCS: 80305; 99212 ==

== ENCOUNTER → 2022-06-20 10:16 | Outpatient (BNVA) | payer OTHER, SELFPAY | PROVIDERS: PCP Internal Medicine; Visit Provider Nurse Practitioner Psychiatric/Mental Health | DX: F11.21 Opioid dependence, in remission (principal) | CPT/HCPCS: 80305; 99212 ==

== ENCOUNTER → 2022-07-25 15:41 | Outpatient (BNVA) | payer OTHER, SELFPAY | PROVIDERS: PCP Internal Medicine; Visit Provider Nurse Practitioner Psychiatric/Mental Health | DX: F11.20 Opioid dependence, uncomplicated (principal); F32.A Depression, unspecified; F41.9 Anxiety disorder, unspecified | CPT/HCPCS: 80305; 99212 ==

== ENCOUNTER 2022-07-30 11:57 | Outpatient (REF) | payer OTHER, SELFPAY ==
[2022-07-30 12:30] LABS: COVID-19 Test Negative (Negative); IDNOW Serial# 9DB6401D
== END 2022-07-30 11:58 | disposition home or self-care (01) ==
LOC: HO.LAB 11:57
PROVIDERS: Visit Provider Internal Medicine
DX: Z20.822 Contact with and (suspected) exposure to COVID-19 (principal)
CPT/HCPCS: 87635; C9803

== ENCOUNTER → 2022-08-30 15:36 | Outpatient (BNVA) | payer OTHER, SELFPAY | PROVIDERS: PCP Internal Medicine; Visit Provider Nurse Practitioner Psychiatric/Mental Health | DX: Z51.81 Encounter for therapeutic drug level monitoring (principal); F11.20 Opioid dependence, uncomplicated | CPT/HCPCS: 80305 ==

== ENCOUNTER → 2022-09-05 16:10 | Outpatient (BNVA) | payer OTHER, SELFPAY | PROVIDERS: PCP Internal Medicine; Visit Provider Nurse Practitioner Psychiatric/Mental Health | DX: Z51.81 Encounter for therapeutic drug level monitoring (principal); F11.21 Opioid dependence, in remission; F32.A Depression, unspecified; F41.9 Anxiety disorder, unspecified | CPT/HCPCS: 99212 ==

== ENCOUNTER → 2022-10-15 15:20 | Outpatient (BNVA) | payer OTHER, SELFPAY | PROVIDERS: PCP Internal Medicine; Visit Provider Nurse Practitioner Psychiatric/Mental Health | DX: Z51.81 Encounter for therapeutic drug level monitoring (principal); F11.21 Opioid dependence, in remission | CPT/HCPCS: 99212 ==

== ENCOUNTER → 2022-11-21 15:48 | Outpatient (BNVA) | payer OTHER, SELFPAY | PROVIDERS: PCP Internal Medicine; Visit Provider Nurse Practitioner Psychiatric/Mental Health | DX: F11.20 Opioid dependence, uncomplicated (principal); F32.A Depression, unspecified; F41.9 Anxiety disorder, unspecified | CPT/HCPCS: 80305; 99212 ==

== ENCOUNTER 2023-01-07 11:37 | Outpatient (AMB) | payer OTHER, SELFPAY ==
--- NOTE | 2023-01-07 11:40 | A.OFFVIS_ITS ---
Intake Vital Signs 01/07/23 11:45 Pulse 97 Pulse Source Pulse Oximeter Pulse Oximetry (%) 98 Oxygen Delivery Method Room Air Comment pt declined bp today due to caffeine Intake Visit Reasons: MAT Visit Intake Note: the patient presents for a mat visit Buyer Intern Required: No Allergies No Known Allergies Allergy (Verified 01/07/23 11:40) Do you need a note to return to daycare/school/sports/work: No HPI MAT Visit HPI Details Patient presents for follow-up. Reports that he has decreased dose to 6 mg daily (has been taking half of 12 mg film). 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 Denies any issues with recovery. States his goal is to eventually discontinue Suboxone. No questions or concerns at this time. [facility] Medical History Asthma Asthma Opioid use disorder Social History Alcohol intake: unknown Patient Tobacco Use Status: Tobacco use Unknown Review of Systems Const Reports as per HPI and Reports no additional complaints Physical Exam Vital Signs: Last Vital Signs Pulse 97 01/07/23 11:45 Pulse Ox 98 01/07/23 11:45 Oxygen Delivery Method Room Air 01/07/23 11:45 Const General: cooperative, healthy appearing, comfortable, well developed and alert Nutritional Appearance: well nourished Orientation/consciousness: patient oriented x3 Limitations: no limitations Neuro General: patient oriented x3 Psych Other: Stable mood/affect Appearance: grossly normal Mental Status: mental status grossly normal Speech and movement: Normal speech and movement present Affect: normal affect Attitude: cooperative Thought process: Normal thought process present Thought content: Normal thought content present Insight: Good insight present (Psych) Judgement: Good judgement present (Psych) Results AMB 14 Panel Urine Drug Screen Urine Marijuana (THC) Negative Last Edit by Vita Norris CMA on 01/07/23 11:47 Urine Cocaine Negative Last Edit by Vita Norris CMA on 01/07/23 11:47 Urine Morphine Negative Last Edit by Vita Norris CMA on 01/07/23 11:47 Urine Methamphetamine Negative Last Edit by Vita Norris CMA on 01/07/23 11:47 Urine Amphetamine Negative Last Edit by Vita Norris CMA on 01/07/23 11:4 7 Urine Benzodiazepine Negative Last Edit by Vita Norris CMA on 01/07/23 11:47 Urine Barbiturates Negative Last Edit by Vita Norris CMA on 01/07/23 11: 47 Urine Methadone Negative Last Edit by Vita Norris CMA on 01/07/23 11:47 Urine Buprenorphine Positive Last Edit by Vita Norris CMA on 01/07/23 11 :47 Urine Tricyclic Antidepressant Negative Last Edit by Vita Norris CMA on 01/07/23 11:47 Urine MDMA Negative Last Edit by Vita Norris CMA on 01/07/23 11:47 Urine Oxycodone Negative Last Edit by Vita Norris CMA on 01/07/23 11:47 Urine Phencyclidine Negative Last Edit by Vita Norris CMA on 01/07/23 11 :47 Urine Propoxyphene Negative Last Edit by Vita Norris CMA on 01/07/23 11: 47 Results Reviewed Results Reviewed: Laboratory Last Values POC Urine Buprenorphine Positive 01/07/23 11:40 POC Urine Morphine Negative 01/07/23 11:40 POC Urine Oxycodone Negative 01/07/23 11:40 POC Urine Methadone Negative 01/07/23 11:40 POC Urine Propoxyphene Negative 01/07/23 11:40 POC Urine Barbiturates Negative 01/07/23 11:40 POC U Tricyclic Antidpr Negative 01/07/23 11:40 POC Urine PCP Negative 01/07/23 11:40 POC Ur Amphetamines Negative 01/07/23 11:40 POC Ur Methamphetamine Negative 01/07/23 11:40 POC Urine MDMA Negative 01/07/23 11:40 POC Ur Benzodiazepine Negative 01/07/23 11:40 POC Urine Cocaine Negative 01/07/23 11:40 POC Ur Marijuana (THC) Negative 01/07/23 11:40 Assessment & Plan Assessment & Plan (1) Opioid use disorder, moderate, in sustained remission: Code(s): F11.21 - Opioid dependence, in remission Plan: * Continue Suboxone at 6 mg daily * Follow-up 8 weeks Orders: Orders AMB 14 Panel Urine Drug Screen 01/07/23 Z51.81 - Encounter for therapeutic drug level monitoring Medications: Refilled buprenorphine-naloxone 12-3 mg (Suboxone) 1 film sublingual Q24H 30 ea 0RF Coding Level of Care Code Est Pt Level 3 (56391) Diagnoses Opioid use disorder, moderate, in sustained remission F11.21
[2023-01-07 11:45] VITALS: PULSE 97; O2SAT 98
== END 2023-01-07 12:51 | disposition home or self-care (01) ==
LOC: HO.HCC 11:37
PROVIDERS: PCP Internal Medicine; Visit Provider Nurse Practitioner Psychiatric/Mental Health
DX: F11.21 Opioid dependence, in remission (principal)
CPT/HCPCS: 99213

== ENCOUNTER → 2023-01-07 11:37 | Outpatient (BNVA) | payer OTHER, SELFPAY | PROVIDERS: PCP Internal Medicine; Visit Provider Nurse Practitioner Psychiatric/Mental Health | DX: Z51.81 Encounter for therapeutic drug level monitoring (principal); F11.21 Opioid dependence, in remission | CPT/HCPCS: 80305; 99212 ==

== ENCOUNTER 2023-01-18 22:07 | Emergency (ER) | payer OTHER, SELFPAY ==
--- NOTE | ~2023-01-18 | XR_ITS ---
EXAMINATION: XR CHEST CLINICAL INFORMATION: Chest tightness, tachypnea COMPARISON: 08/09/2020 TECHNIQUE: Frontal view of the chest was obtained. FINDINGS: The lungs are clear with no focal consolidation. No evidence of pneumothorax, pulmonary edema, or pleural effusions. The cardiomediastinal silhouette is unremarkable. No acute osseous findings. XR/XR chest 1V IMPRESSION: No acute cardiopulmonary findings.
[2023-01-18 22:24] VITALS: BP 134/76; PULSE 74; RESP 20; TEMP 36.5; O2SAT 95; BMI 31.5
--- NOTE | 2023-01-18 22:32 | ECG_ITS ---
Test Reason : SOB Blood Pressure : / mmHG Vent. Rate : 069 BPM Atrial Rate : 069 BPM P-R Int : 184 ms QRS Dur : 088 ms QT Int : 388 ms P-R-T Axes : -06 041 012 degrees QTc Int : 415 ms Normal sinus rhythm Normal ECG When compared with ECG of 26-JUN-2017 14:31, Vent. rate has decreased BY [address] no longer depressed in Anterior leads Referred By: Generic ED Physician Electronically Signed By:Rod Estrada
--- NOTE | 2023-01-18 23:18 | ED.URI ---
HPI - URI/Sore Throat General Chief Complaint: Dyspnea Stated Complaint: chest congestion Time Seen by Provider: 01/18/23 23:16 Source: patient Mode of arrival: ambulatory Limitations: no limitations History of Present Illness HPI Narrative: History of asthma usually stable used polyurethrane chemicals to clean the floor 3 weeks ago since then patient with wheezing and cough mostly dry cough occasional mucoid fluid no fever no chills no body aches Related Data Previous Rx's Medication Instructions Recorded naloxone 4 mg/actuation nasal 4 mg intranasal Q2M PRN opioid 06/29/20 spray (Narcan) overdose #2 ea buprenorphine 12 mg-naloxone 3 mg 1 film sublingual Q24H #30 ea 01/07/23 sublingual film (Suboxone) albuterol sulfate 90 mcg/actuation 2 puff inhalation Q4-6H PRN 01/19/23 aerosol inhaler (ProAir HFA) shortness of breath or wheezing #8.5 grams prednisone 20 mg tablet 40 mg PO DAILY #10 tabs 01/19/23 Allergies Allergy/AdvReac Type Severity Reaction Status Date / Time No Known Allergies Allergy Verified 01/07/23 11:40 Review of Systems Review of Systems: Yes all other systems are reviewed and are negative [facility] Past Medical History Medical History Asthma Asthma Opioid use disorder Social History Social History Alcohol intake: current Patient Tobacco Use Status: Tobacco use Unknown Smoked in Last 30 Days: Yes Use of substances other than those prescribed or required for medical reasons: No Advance Directives: No Advance Directives Information Provided: Yes Physical Exam Vital Signs: Vital Signs: Last Vital Signs Temp 97.9 F 01/18/23 23:53 Pulse 74 01/19/23 00:05 Resp 18 01/19/23 00:05 BP 124/77 01/18/23 23:53 Pulse Ox 93 01/18/23 23:53 O2 Del Method Room Air 01/18/23 23:53 BMI result Body Mass Index 31.5 Appearance: Alert. Oriented X3. No acute distress. ENT: Pharynx normal. Oral Mucosa moist Neck: Normal inspection. Neck supple. CVS: Normal heart rate and rhythm. Pulses normal. Respiratory: No respiratory distress. Equal air entry bilateral, bilateral wheezing no rales Abdomen: Soft and nontender. Skin: Skin warm and dry. Normal skin color. Normal skin turgor. Extremities: No lower extremity edema. No calf tenderness Neuro: Oriented X 3. Medications Administered Discontinued Medications Generic Name Dose Route Start Last Admin Trade Name Gabriel PRN Reason Stop Dose Admin Albuterol Sulfate 2 puff 01/18/23 23:50 01/19/23 00:05 Albuterol Sulfate 90 Mcg 8 Gm Inhaler INHALE 01/18/23 23:51 2 puff ONCE ONE Administration Albuterol/Ipratropium 3 ml 01/18/23 23:50 01/19/23 00:05 Albuterol/Iprat 2.5/0.5mg 3 Ml Ampul.Neb INHALE 01/18/23 23:51 3 ml ONCE ONE Administration Prednisone 60 mg 01/18/23 23:50 01/19/23 00:02 Prednisone 20 Mg Tablet PO 01/18/23 23:51 60 mg ONCE ONE Administration Medical Decision Making Medical Decision Making [facility] Narrative: Patient felt better after nebulizing treatment feeling back to normal patient feeling much better now discharge patient home Lab Data [facility] Lab Attestation statement: I reviewed the patient's lab results. 01/18/23 23:05 Labs: Lab Results 01/18/23 01/18/23 01/18/23 Range/Units 23:05 23:14 23:14 WBC (4.8-10.8) X10*3/uL RBC (4.60-5.80) X10*6/uL Hgb (14.0-18.0) g/dl Hct (42.0-52.0) % MCV (80.0-98.0) fL MCH (27.0-33.0) pg MCHC (31.0-36.0) g/dl RDW (11.0-16.0) % Plt Count (160-400) X10*3/uL MPV (9.4-12.4) fL Immature Gran % (Auto) (0.0-0.4) % Neut % (Auto) (45-73) % Lymph % (Auto) (20-40) % Scurry % (Auto) (2-11) % Eos % (Auto) (0-4) % Baso % (Auto) (0-2) % Lymph # (Auto) (1.2-4.9) X10*3/uL Scurry # (Auto) (0.1-1.2) X10*3/uL Eos # (Auto) (0.0-0.4) X10*3/uL Baso # (Auto) (0.0-0.2) X10*3/uL Abs Immat Gran (auto) (0.00-0.03) X10*3/uL Absolute Neuts (auto) (2.0-8.3) x10*3/uL Absolute Nucleated RBC (0.0-0.012) X10*3/uL Nucleated RBC % (auto) (0.0-0.2) /100WBC Sodium 140 (135-145) mmol/L Potassium 4.1 (3.3-5.1) mmol/L Chloride 107 (96-108) mmol/L Carbon Dioxide 28 (22-29) mmol/L Anion Gap 9 L (12-20) BUN 15 (9-16) mg/dL Creatinine 0.93 (0.5-1.4) mg/dL Estim Creat Clear Calc 126.0 Estimated GFR > 60 Random Glucose 81 (60-115) mg/dL Calcium 9.5 (8.4-10.2) mg/dL COVID-19 (KEYSHA) Negative (Negative) COVID-19 Clin Com See Note Influenza Type A (ANN) Negative (Negative) Influenza Type B (ANN) Negative (Negative) Influenza A & B Note See Note 01/18/23 Range/Units 23:18 WBC 5.8 (4.8-10.8) X10*3/uL RBC 4.30 L (4.60-5.80) X10*6/uL Hgb 12.8 L (14.0-18.0) g/dl Hct 37.5 L (42.0-52.0) % MCV 87.2 (80.0-98.0) fL MCH 29.8 (27.0-33.0) pg MCHC 34.1 (31.0-36.0) g/dl RDW 11.6 (11.0-16.0) % Plt Count 176 (160-400) X10*3/uL MPV 10.1 (9.4-12.4) fL Immature Gran % (Auto) 0.2 (0.0-0.4) % Neut % (Auto) 53.9 (45-73) % Lymph % (Auto) 29.9 (20-40) % Scurry % (Auto) 11.2 H (2-11) % Eos % (Auto) 4.1 H (0-4) % Baso % (Auto) 0.7 (0-2) % Lymph # (Auto) 1.7 (1.2-4.9) X10*3/uL Scurry # (Auto) 0.7 (0.1-1.2) X10*3/uL Eos # (Auto) 0.2 (0.0-0.4) X10*3/uL Baso # (Auto) 0.0 (0.0-0.2) X10*3/uL Abs Immat Gran (auto) 0.01 (0.00-0.03) X10*3/uL Absolute Neuts (auto) 3.1 (2.0-8.3) x10*3/uL Absolute Nucleated RBC 0.000 (0.0-0.012) X10*3/uL Nucleated RBC % (auto) 0.0 (0.0-0.2) /100WBC Sodium (135-145) mmol/L Potassium (3.3-5.1) mmol/L Chloride (96-108) mmol/L Carbon Dioxide (22-29) mmol/L Anion Gap (12-20) BUN (9-16) mg/dL Creatinine (0.5-1.4) mg/dL Estim Creat Clear Calc Estimated GFR Random Glucose (60-115) mg/dL Calcium (8.4-10.2) mg/dL COVID-19 (KEYSHA) (Negative) COVID-19 Clin Com Influenza Type A (ANN) (Negative) Influenza Type B (ANN) (Negative) Influenza A & B Note Discharge Plan Discharge Clinical Impression: Acute asthmatic bronchitis Patient Disposition: Home, Self-Care Instructions: Asthma (ED) Additional Instructions: Use inhaler and prednisone as prescribed Avoid exposure to chemical Follow with PCP Prescriptions: New albuterol sulfate [ProAir HFA] 90 mcg/actuation HFA aerosol inhaler 2 puff inhalation Q4-6H PRN (Reason: shortness of breath or wheezing) Qty: 8.5 0RF prednisone 20 mg tablet 40 mg PO DAILY Qty: 10 0RF No Action Narcan 4 mg/actuation spray,non-aerosol 4 mg intranasal Q2M PRN (Reason: opioid overdose) Qty: 2 0RF Rx Instructions: spray 1 dose into ONE nostril; alternate nostrils w each dose until help arrives buprenorphine-naloxone [Suboxone] 12-3 mg film 1 film sublingual Q24H Qty: 30 0RF Interventions: ED Discharge Assessment Last Done: 01/19/23 01:19
[2023-01-18 23:22] LABS: Anion Gap 9 (12-20); Blood Urea Nitrogen 15 mg/dL (9-16); Calcium 9.5 mg/dL (8.4-10.2); Carbon Dioxide 28 mmol/L (22-29); Chloride 107 mmol/L (96-108); Estimated Glomerular Filt Rate > 60; Glucose Random 81 mg/dL (60-115); Potassium 4.1 mmol/L (3.3-5.1); Sodium 140 mmol/L (135-145)
--- NOTE | 2023-01-18 23:26 | PC.NURSE ---
pt assessed, exp wheezes c/o chest congestion, have not taken and medication also a HX of asthma
[2023-01-18 23:36] LABS: MANUAL DIFF FLAG NO
[2023-01-18 23:37] LABS: Basophils Percent Auto 0.7 % (0-2); Eosinophils Absolute Auto 0.2 X10*3/uL (0.0-0.4); Eosinophils Percent Auto 4.1 % (0-4); Hematocrit 37.5 % (42.0-52.0); Hemoglobin 12.8 g/dl (14.0-18.0); Imm Gran Abs Auto 0.01 X10*3/uL (0.00-0.03); Imm Gran Pct Auto 0.2 % (0.0-0.4); Lymphocytes Absolute Auto 1.7 X10*3/uL (1.2-4.9); Lymphocytes Percent Auto 29.9 % (20-40); Mean Corpuscular HGB Conc 34.1 g/dl (31.0-36.0); Mean Corpuscular Hemoglobin 29.8 pg (27.0-33.0); Mean Corpuscular Volume 87.2 fL (80.0-98.0); Mean Platelet Volume 10.1 fL (9.4-12.4); Monocytes Absolute Auto 0.7 X10*3/uL (0.1-1.2); Monocytes Percent Auto 11.2 % (2-11); Neutrophils Absolute Auto 3.1 x10*3/uL (2.0-8.3); Neutrophils Percent Auto 53.9 % (45-73); Platelet Count 176 X10*3/uL (160-400); Red Cell Distribution Width 11.6 % (11.0-16.0); White Blood Count 5.8 X10*3/uL (4.8-10.8)
[2023-01-18 23:53] VITALS: BP 124/77; PULSE 75; RESP 11; TEMP 36.6; O2SAT 93
[2023-01-18 23:53] LABS: IDNOW Serial# 08D9AD1C; Influenza A Negative (Negative); Influenza B2 Negative (Negative)
[2023-01-18 23:54] LABS: COVID-19 Test Negative (Negative); IDNOW Serial# BCCEAD1C
[2023-01-19] MEDS: predniSONE 20 MG TABLET 60 MG PO (00:02)
[2023-01-19 00:05] VITALS: PULSE 74; RESP 18; O2SAT 95
[2023-01-19] MEDS: Albuterol Sulfate 90 MCG 8 GM INHALER 2 PUFF INHALE (00:05)
[2023-01-19] MEDS: Albuterol/Iprat 2.5/0.5MG 3 ML AMPUL.NEB INHALE (00:05)
--- NOTE | 2023-01-19 01:19 | PC.NURSE ---
pt d/c with albuterol inhaler, denies any resp distress
== END 2023-01-19 01:19 | disposition home or self-care (01) ==
PROVIDERS: Emergency Provider Internal Medicine; PCP Nurse Practitioner Family
DX: J20.9 Acute bronchitis, unspecified (principal); I10 Essential (primary) hypertension; R06.2 Wheezing; R05.9 Cough, unspecified; Z20.822 Contact with and (suspected) exposure to COVID-19
CPT/HCPCS: 36415; 71045; 80048; 85025; 87502; 87635; 93005; 94640; 99285

== ENCOUNTER → 2023-01-18 22:32 | Outpatient (BNV) | payer OTHER, SELFPAY | PROVIDERS: Emergency Provider Internal Medicine; PCP Nurse Practitioner Family; Visit Provider Internal Medicine Cardiovascular Disease | DX: R06.02 Shortness of breath (principal) | CPT/HCPCS: 93010 ==

== ENCOUNTER 2023-03-04 15:31 | Outpatient (AMB) | payer OTHER, SELFPAY ==
--- NOTE | 2023-03-04 15:33 | A.OFFVIS_ITS ---
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 No concerns related to recovery. [facility] Medical History Asthma Asthma Opioid use disorder Social History Alcohol intake: current Patient Tobacco Use Status: Tobacco use Unknown Review of Systems Const Reports as per HPI and Reports no additional complaints Physical Exam Const General: cooperative, healthy appearing, comfortable, well developed and alert Nutritional Appearance: well nourished Orientation/consciousness: patient oriented x3 Limitations: no limitations Neuro General: patient oriented x3 Psych Other: Stable mood/affect Appearance: grossly normal Mental Status: mental status grossly normal Speech and movement: Normal speech and movement present Affect: normal affect Attitude: cooperative Thought process: Normal thought process present Thought content: Normal thought content present Insight: Good insight present (Psych) Judgement: Good judgement present (Psych) Results AMB 14 Panel Urine Drug Screen Urine Marijuana (THC) Negative Last Edit by Vita Norris CMA on 03/04/23 15:41 Urine Cocaine Negative Last Edit by Vita Norris CMA on 03/04/23 15:41 Urine Morphine Negative Last Edit by Vita Norris CMA on 03/04/23 15:41 Urine Methamphetamine Negative Last Edit by Vita Norris CMA on 03/04/23 15:41 Urine Amphetamine Negative Last Edit by Vita Norris CMA on 03/04/23 15:4 1 Urine Benzodiazepine Negative Last Edit by Vita Norris CMA on 03/04/23 15:41 Urine Barbiturates Negative Last Edit by Vita Norris CMA on 03/04/23 15: 41 Urine Methadone Negative Last Edit by Vita Norris CMA on 03/04/23 15:41 Urine Buprenorphine Positive Last Edit by Vita Norris CMA on 03/04/23 15 :41 Urine Tricyclic Antidepressant Negative Last Edit by Vita Norris CMA on 03/04/23 15:41 Urine MDMA Negative Last Edit by Vita Norris CMA on 03/04/23 15:41 Urine Oxycodone Negative Last Edit by Vita Norris CMA on 03/04/23 15:41 Urine Phencyclidine Negative Last Edit by Vita Norris CMA on 03/04/23 15 :41 Urine Propoxyphene Negative Last Edit by Vita Norris CMA on 03/04/23 15: 41 Results Reviewed Results Reviewed: Laboratory Last Values POC Urine Buprenorphine Positive 03/04/23 15:34 POC Urine Morphine Negative 03/04/23 15:34 POC Urine Oxycodone Negative 03/04/23 15:34 POC Urine Methadone Negative 03/04/23 15:34 POC Urine Propoxyphene Negative 03/04/23 15:34 POC Urine Barbiturates Negative 03/04/23 15:34 POC U Tricyclic Antidpr Negative 03/04/23 15:34 POC Urine PCP Negative 03/04/23 15:34 POC Ur Amphetamines Negative 03/04/23 15:34 POC Ur Methamphetamine Negative 03/04/23 15:34 POC Urine MDMA Negative 03/04/23 15:34 POC Ur Benzodiazepine Negative 03/04/23 15:34 POC Urine Cocaine Negative 03/04/23 15:34 POC Ur Marijuana (THC) Negative 03/04/23 15:34 Assessment & Plan Assessment & Plan (1) Opioid use disorder, moderate, in sustained remission: Code(s): F11.21 - Opioid dependence, in remission Plan: * Continue Suboxone at current dose * Follow-up 8 weeks Orders: Orders AMB 14 Panel Urine Drug Screen 03/04/23 Z51.81 - Encounter for therapeutic drug level monitoring Medications: Changed From buprenorphine-naloxone 12-3 mg (Suboxone) 1 film sublingual Q24H 30 ea 0RF To buprenorphine-naloxone 12-3 mg (Suboxone) 1 film sublingual DAILY 30 ea 0RF Coding Level of Care Code Est Pt Level 3 (26477) Diagnoses Opioid use disorder, moderate, in sustained remission F11.21
== END 2023-03-04 16:08 | disposition home or self-care (01) ==
LOC: HO.HCC 15:31
PROVIDERS: PCP Nurse Practitioner Family; Visit Provider Nurse Practitioner Psychiatric/Mental Health
DX: F11.21 Opioid dependence, in remission (principal)
CPT/HCPCS: 99213

== ENCOUNTER → 2023-03-04 15:31 | Outpatient (BNVA) | payer OTHER, SELFPAY | PROVIDERS: PCP Nurse Practitioner Family; Visit Provider Nurse Practitioner Psychiatric/Mental Health | DX: F11.20 Opioid dependence, uncomplicated (principal) | CPT/HCPCS: 80305; 99212 ==

== ENCOUNTER → 2023-05-29 15:08 | Outpatient (BNVA) | payer OTHER, SELFPAY | PROVIDERS: PCP Nurse Practitioner Family; Visit Provider Nurse Practitioner Psychiatric/Mental Health | DX: F11.21 Opioid dependence, in remission (principal) | CPT/HCPCS: 99212 ==

== ENCOUNTER 2023-05-29 15:09 | Outpatient (AMB) | payer OTHER, SELFPAY ==
--- NOTE | 2023-05-29 15:22 | A.OFFVIS_ITS ---
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 Discussed self care [facility] Medical History (Updated 05/29/23 @ 15:29 by Serena Wong CNP) Opioid use disorder Opioid use disorder Asthma Asthma Social History Alcohol intake: current Patient Tobacco Use Status: Tobacco use Unknown Review of Systems Const Reports as per HPI and Reports no additional complaints Physical Exam Const General: cooperative, healthy appearing, comfortable, well developed and alert Nutritional Appearance: well nourished Orientation/consciousness: patient oriented x3 Limitations: no limitations Neuro General: patient oriented x3 Psych Other: Stable mood/affect Appearance: grossly normal Mental Status: mental status grossly normal Speech and movement: Normal speech and movement present Affect: normal affect Attitude: cooperative Thought process: Normal thought process present Thought content: Normal thought content present Insight: Good insight present (Psych) Judgement: Good judgement present (Psych) Assessment & Plan Assessment & Plan (1) Opioid use disorder, moderate, in sustained remission: Code(s): F11.21 - Opioid dependence, in remission Plan: * continue suboxone at current dose --patient requesting 8mg films * follow up 2 months Medications: New buprenorphine-naloxone 8-2 mg (Suboxone) 1 film sublingual DAILY 30 ea 1RF Discontinued buprenorphine-naloxone 12-3 mg (Suboxone) Discontinued Reason: Doctor's Order 1 film sublingual DAILY 30 ea 0RF Coding Level of Care Code Est Pt Level 3 (95813) Diagnoses Opioid use disorder, moderate, in sustained remission F11.21
== END 2023-05-29 16:23 | disposition home or self-care (01) ==
PROVIDERS: PCP Nurse Practitioner Family; Visit Provider Nurse Practitioner Psychiatric/Mental Health
DX: F11.21 Opioid dependence, in remission (principal)
CPT/HCPCS: 99213

== ENCOUNTER 2023-06-17 15:55 | Outpatient (AMB) | payer OTHER, SELFPAY ==
--- NOTE | 2023-06-17 15:58 | MHC.PC.OV ---
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 Allergies No Known Allergies Allergy (Verified 06/17/23 16:13) Medication List - Last Reconciled 06/17/23 by KEN Farr albuterol sulfate 90 mcg/actuation (ProAir HFA) 2 puffs inhalation Q4-6H PRN buprenorphine-naloxone 8-2 mg (Suboxone) 1 film sublingual DAILY buspirone 7.5 mg PO BID 30 days naloxone 4 mg/actuation (Narcan) 4 mg intranasal Q2M PRN Tobacco use date assessed: 06/17/23 Dental Screening Dental Screen Date: 06/17/23 Did you have a dental visit in the last 12 months?: No Did you have a dental problem in the last 6 months where you did not have access to dental care?: No Was dental information given to patient?: Patient has dentist HPI [employer] Manager-Request Physical Exam HPI Details New pt is here for a PE. Will order labs. Pt c/o anxiety. He would like to try a medication for this. Will send buspirone 7.5mg bid. Denies any SI and HI. Pt has a hx of substance abuse. He was sober but recently relapsed. He is working to stop this. Pt will be restarting suboxone. Pt reports intermittent chest discomfort. He reports that this does not radiate and lasts only seconds. ? anxiety related. Will do an EKG in office. Pt's blood pressure is elevated today. Pt refuses blood pressure medication today. He reports that his blood pressure is usually stable. Will have pt monitor his blood pressure at home and drop off readings in the near future. [facility] Medical History (Updated 06/17/23 @ 16:37 by KEN Farr) Opioid use disorder Opioid use disorder Asthma Asthma Family History Father Family history of substance abuse Social History Housing: House Alcohol intake: current Patient Tobacco Use Status: Former Tobacco user e-Cigarette/Vaping Use: Never Used service: No Current occupational status: employed Cognitive needs: No Hearing needs: No Vision needs: No Questionnaire PHQ-9 Over the last 2 weeks, how often have you been bothered by any of the following problems? 1. Little interest or pleasure in doing things: not at all 2. Feeling down, depressed, or hopeless: not at all 3. Trouble falling or staying asleep, or sleeping too much: nearly every day 4. Feeling tired or having little energy: several days 5. Poor appetite or overeating: several days 6. Feeling bad about yourself - or that you are a failure or have let yourself or your family down: several days 7. Trouble concentrating on things, such as reading the newspaper or watching television: not at all 8. Moving or speaking so slowly that other people could have noticed. Or the opposite - being so fidgety or restless that you have been moving around a lot more than usual: not at all 9. Thoughts that you would be better off or of hurting yourself in some way: not at all Total score: 6 Depression Screening Interpretation: Negative Depression Screening Done: Yes 30476 - PHQ-9 Billing: Yes Source: Developed by Drs. Geremias Preston, Mariya Britton, Sony Shirley and colleagues, with an educational riya from [employer]. Thrive Questionnaire Date Thrive assessed: 06/17/23 I am a: Patient What is your living situation today?: I have a steady place to live Within the past 12 months, did the food you bought not last and you didn't have the money to get more?: Never true Within the past 12 months, did you worry whether your food would run out before you got money to buy more?: Never true Do you have trouble paying for medicines?: No Do you have trouble getting transportation to medical appointments?: No Do you have trouble paying your heating and electricity bill?: No Do you have trouble taking care of your child, family member or friend?: No Do you have trouble with day-to-day activities such as bathing, preparing meals, shopping, managing finances, etc.?: No Are you currently unemployed and looking for a job?: No Are you interested in more education?: Yes AUDIT C Alcohol Use Questionnaire (AUDIT-C) 1. How often do you have a drink containing alcohol?: Never 3. How often do you have six or more drinks on one occasion?: Never Total Score: 0 Score Reviewed/Action Taken: No JESSICA-7 AMB Questionnaire JESSICA-7 Date JESSICA - 7 assessed: 06/17/23 Feeling nervous, anxious, or on edge: 3 = Nearly every day Not being able to stop or control worryin = Several days Worrying too much about different things: 3 = Nearly every day Trouble relaxin = Nearly every day Being so restless that it is hard to sit still: 3 = Nearly every day Becoming easily annoyed or irritable: 1 = Several days Feeling afraid as if something awful might happen: 3 = Nearly every day Total JESSICA-7 score (0-4 normal; 5-9 mild; 10-14 moderate; 15-21 severe): 17 Source: Developed by Drs. Geremias Preston, Mariya Britton, Sony Shirley and colleagues, with an educational riya from [employer]. JESSICA-7 Assessment Billing JESSICA-7 Assessment Tool: JESSICA-7 Assessment 91831 Review of Systems Const Denies chills and Denies fever(s) Eyes Denies blurry vision ENT Denies vertigo, Denies dizziness and Denies sore throat Card Reports chest pain at rest, Reports chest pain with activity, Denies diaphoresis, Denies dyspnea and Denies dyspnea on exertion Resp Denies cough, Denies dyspnea, Denies dyspnea on exertion and Denies wheezing GI Denies abdominal pain, Denies melena, Denies hematochezia, Denies constipation, Denies diarrhea and Denies loose stools Denies hematuria Musc Denies numbness and Denies tingling Skin/Breast Denies lesions Neuro Denies vertigo, Denies dizziness, Denies numbness and Denies tingling Psych Denies anxiety, Denies depression, Denies homicidal ideation, Denies suicidal ideation and Denies other (substance abuse) Aller/Immun Denies wheezing Physical exam (Primary Care) Vital Signs: Last Vital Signs Pulse 83 06/17/23 16:12 BP 132/100 H 06/17/23 16:12 Pulse Ox 97 06/17/23 16:12 Oxygen Delivery Method Room Air 06/17/23 16:12 BMI result Body Mass Index 30.7 Tobacco/Smoking Status: Tobacco use Status Tobacco use date assessed 06/17/23 06/17/23 16:18 Patient Tobacco Use Status Former Tobacco user 06/17/23 16:18 e-Cigarette/Vaping Use Never Used 06/17/23 16:18 Depression Screening Interpretation: Negative Const General: cooperative Nutritional Appearance: well nourished Orientation/consciousness: patient oriented x3 HENMT Head: Yes normal to inspection, Yes normocephalic and Yes atraumatic Ears: TM's normal bilaterally Eyes General: appearance normal, both eyes and all related structures Alignment and Position: alignment normal and position normal Neck Neck: Yes normal visual inspection and Yes no lymphadenopathy Thyroid: Thyroid normal Resp Effort & Inspection: normal respiratory effort Auscultation: clear to auscultation bilaterally Cardio Rate: regular rate Rhythm: regular rhythm Heart sounds: S1 normal heart sound present, S2 normal heart sound present and no murmurs GI Palpation (GI): Soft to palpation and nontender Auscultation: normal bowel sounds Male General Exam: Yes normal external exam Penis: normal penis Scrotum: scrotum normal, testes descended bilaterally and no inguinal hernias Testes: no testicular mass Skin Rashes: no rashes Neuro General: patient oriented x3, moves all extremities, no focal motor deficits and deep tendon reflexes 2+ bilaterally Romberg Test: Negative Psych Appearance: grossly normal Mental Status: mental status grossly normal Speech and movement: Normal speech and movement present Affect: normal affect Attitude: cooperative Thought process: Normal thought process present Thought content: Normal thought content present Insight: Good insight present (Psych) Judgement: Good judgement present (Psych) Assessment and Plan Assessment & Plan (1) Physical exam: Code(s): Z00.00 - Encounter for general adult medical examination without abnormal findings Plan: Labs ordered (2) Chest pain: Code(s): R07.9 - Chest pain, unspecified Plan: EKG done in office (3) Anxiety: Code(s): F41.9 - Anxiety disorder, unspecified Plan The patient agreed to the use of a medical assistant ob gyn for this encounter. Scribed for KEN Arndt by Vanessa Flower medical assistant ob gyn, on 06/17/2023 at 16:20 EST. Orders: Orders Comprehensive [place]. Panel Fast Today Z00.00 - Encounter for general adult medical examination without abnormal findings TSH reflex Free T4 Today Z00.00 - Encounter for general adult medical examination without abnormal findings AMB EKG-In Office Today R07.9 - Chest pain, unspecified Complete Blood Count Auto Diff Today Z00.00 - Encounter for general adult medical examination without abnormal findings UA CC w/rflx Micro + Cult Today Z00.00 - Encounter for general adult medical examination without abnormal findings Lipid Panel Today Z00.00 - Encounter for general adult medical examination without abnormal findings Medications: New buspirone 7.5 mg PO BID 30 days 60 tabs 3RF Coding Level of Care Code New Pt Prev Care 40-64y(46041) Diagnoses Physical exam Z00.00 Chest pain R07.9 Anxiety F41.9 Additional Codes JESSICA-7 Assessment Billing - JESSICA-7 Assessment Tool: JESSICA-7 Assessment 72886 ([id number])
[2023-06-17 16:12] VITALS: BP 132/100; PULSE 83; O2SAT 97; BMI 30.7
== END 2023-06-17 17:16 | disposition home or self-care (01) ==
PROVIDERS: PCP Nurse Practitioner Family; Visit Provider Nurse Practitioner Family
DX: Z00.00 Encounter for general adult medical examination without abnormal findings (principal); R07.9 Chest pain, unspecified; F41.9 Anxiety disorder, unspecified
CPT/HCPCS: 99386

== ENCOUNTER 2023-08-06 15:34 | Outpatient (AMB) | payer OTHER, SELFPAY ==
--- NOTE | 2023-08-06 15:38 | MHC.AM.SUB ---
Intake Vital Signs 08/06/23 15:43 Comment patient declined vitals today Intake Visit Reasons: mat visit Intake Note: the patient presents for a mat visit Inspector Scales Required: No Allergies No Known Allergies Allergy (Verified 08/06/23 15:44) Do you need a note to return to daycare/school/sports/work: No HPI mat visit HPI Details Pt presents for MAT visit Reports he has been stable in his recovery 2 years Has no concerns for suboxone dose, tolerating well Denies concerns for recovery COUNTS INCLUDE 234 BEDS AT [facility] Medical History (Updated 06/17/23 @ 16:37 by JORGE FarrJOHN) Opioid use disorder Opioid use disorder Asthma Asthma Family History Father Family history of substance abuse Social History Housing: House Alcohol intake: current Patient Tobacco Use Status: Former Tobacco user e-Cigarette/Vaping Use: Never Used service: No Current occupational status: employed Cognitive needs: No Hearing needs: No Vision needs: No Review of Systems Const Reports as per HPI Physical Exam Const General: cooperative and no acute distress Resp Effort & Inspection: normal respiratory effort Psych Appearance: grossly normal Mental Status: mental status grossly normal Speech and movement: Normal speech and movement present Thought content: Normal thought content present Judgement: Good judgement present (Psych) Results AMB 14 Panel Urine Drug Screen Urine Marijuana (THC) Negative Last Edit by Vita Norris CMA on 08/06/23 15:46 Urine Cocaine Negative Last Edit by Vita Norris CMA on 08/06/23 15:46 Urine Morphine Negative Last Edit by Vita Norris CMA on 08/06/23 15:46 Urine Methamphetamine Negative Last Edit by Vita Norris CMA on 08/06/23 15:46 Urine Amphetamine Negative Last Edit by Vita Norris CMA on 08/06/23 15:46 Urine Benzodiazepine Negative Last Edit by Vita Norris CMA on 08/06/23 15:46 Urine Barbiturates Negative Last Edit by Vita Norris CMA on 08/06/23 15:46 Urine Methadone Negative Last Edit by Vita Norris CMA on 08/06/23 15:46 Urine Buprenorphine Positive Last Edit by Vita Norris CMA on 08/06/23 15:46 Urine Tricyclic Antidepressant Negative Last Edit by Vita Norris CMA on 08/06/23 15:46 Urine MDMA Negative Last Edit by Vita Norris CMA on 08/06/23 15:46 Urine Oxycodone Negative Last Edit by Vita Norris CMA on 08/06/23 15:46 Urine Phencyclidine Negative Last Edit by Vita Norris CMA on 08/06/23 15:46 Urine Propoxyphene Negative Last Edit by Vita Norris CMA on 08/06/23 15:46 Results Reviewed Results Reviewed: Laboratory Last Values POC Urine Buprenorphine Positive 08/06/23 15:37 POC Urine Morphine Negative 08/06/23 15:37 POC Urine Oxycodone Negative 08/06/23 15:37 POC Urine Methadone Negative 08/06/23 15:37 POC Urine Propoxyphene Negative 08/06/23 15:37 POC Urine Barbiturates Negative 08/06/23 15:37 POC U Tricyclic Antidpr Negative 08/06/23 15:37 POC Urine PCP Negative 08/06/23 15:37 POC Ur Amphetamines Negative 08/06/23 15:37 POC Ur Methamphetamine Negative 08/06/23 15:37 POC Urine MDMA Negative 08/06/23 15:37 POC Ur Benzodiazepine Negative 08/06/23 15:37 POC Urine Cocaine Negative 08/06/23 15:37 POC Ur Marijuana (THC) Negative 08/06/23 15:37 Assessment & Plan Assessment & Plan (1) Opioid use disorder, moderate, in sustained remission: Code(s): F11.21 - Opioid dependence, in remission Plan: -Continue suboxone same dose 8mg daily -Follow up 2 months Orders: Orders AMB 14 Panel Urine Drug Screen Today Z51.81 - Encounter for therapeutic drug level monitoring Medications: Refilled buprenorphine-naloxone 8-2 mg (Suboxone) 1 film sublingual DAILY 30 ea 1RF Coding Level of Care Code Est Pt Level 3 (42297) Diagnoses Opioid use disorder, moderate, in sustained remission F11.21
== END 2023-08-06 16:28 | disposition home or self-care (01) ==
PROVIDERS: PCP Nurse Practitioner Family; Visit Provider Nurse Practitioner Family
DX: Z51.81 Encounter for therapeutic drug level monitoring (principal); F11.21 Opioid dependence, in remission
CPT/HCPCS: 99213

== ENCOUNTER → 2023-08-06 15:34 | Outpatient (BNVA) | payer OTHER, SELFPAY | PROVIDERS: PCP Nurse Practitioner Family; Visit Provider Nurse Practitioner Family | DX: F11.21 Opioid dependence, in remission (principal) | CPT/HCPCS: 80305; 99212 ==

== ENCOUNTER 2023-10-14 10:39 | Outpatient (AMB) | payer OTHER, SELFPAY ==
[2023-10-14 10:49] VITALS: BP 154/102; PULSE 78; O2SAT 97
--- NOTE | 2023-10-14 10:49 | MHC.AM.SUB ---
Intake Vital Signs 10/14/23 10:49 BP 154/102 H Blood Pressure Location Lt brachial Position Sitting Pulse 78 Pulse Source Pulse Oximeter Pulse Oximetry (%) 97 Oxygen Delivery Method Room Air Intake Visit Reasons: MAT Visit Allergies No Known Allergies Allergy (Verified 10/14/23 10:50) HPI MAT Visit HPI Details Patient presents for MAT appointment States he has been keeping busy with work Works FT as a contractor Recently purchased a house and some land in [place] Just returned from 10 day trip to [place] Has no concerns for recovery at this time Tolerating suboxone 8mg daily HPI Comments History of Present Illness Details Patient presents for MAT visit COUNTS INCLUDE 234 BEDS AT [facility] Medical History (Updated 06/17/23 @ 16:37 by KEN Farr) Opioid use disorder Opioid use disorder Asthma Asthma Family History Father Family history of substance abuse Social History Housing: House Alcohol intake: current Patient Tobacco Use Status: Former Tobacco user e-Cigarette/Vaping Use: Never Used service: No Current occupational status: employed Cognitive needs: No Hearing needs: No Vision needs: No Review of Systems Const Reports as per HPI Physical Exam Vital Signs: Last Vital Signs Pulse 78 10/14/23 10:49 BP 154/102 H 10/14/23 10:49 Pulse Ox 97 10/14/23 10:49 Oxygen Delivery Method Room Air 10/14/23 10:49 Const General: cooperative and no acute distress Resp Effort & Inspection: normal respiratory effort and able to speak in complete sentences Psych Appearance: grossly normal Mental Status: mental status grossly normal Speech and movement: Normal speech and movement present Affect: normal affect Attitude: cooperative Thought process: Normal thought process present Results AMB 12 Panel Urine Drug Screen Urine Marijuana (THC) Negative Last Edit by Tammy Seaman CMA on 10/14/23 10:58 Urine Buprenorphine Positive Last Edit by Tammy Seaman CMA on 10/14/23 10:58 Urine Barbiturates Negative Last Edit by Tammy Seaman CMA on 10/14/23 10:58 Urine Benzodiazepine Negative Last Edit by Tammy Seaman CMA on 10/14/23 10:58 Urine Methadone Negative Last Edit by Tammy Seaman CMA on 10/14/23 10:58 Urine Amphetamine Negative Last Edit by Tammy Seaman CMA on 10/14/23 10:58 Urine Morphine Negative Last Edit by Tammy Seaman CMA on 10/14/23 10:58 Urine Oxycodone Negative Last Edit by Tammy Seaman CMA on 10/14/23 10:58 Urine MDMA Negative Last Edit by Tammy Seaman CMA on 10/14/23 10:58 Urine Cocaine Negative Last Edit by Tammy Seaman CMA on 10/14/23 10:58 Urine Phencyclidine Negative Last Edit by Tammy Seaman CMA on 10/14/23 10:58 Urine Methamphetamine Negative Last Edit by Tammy Seaman CMA on 10/14/23 10:58 Results Reviewed Results Reviewed: Laboratory Last Values POC Urine Buprenorphine Positive 10/14/23 10:57 POC Urine Morphine Negative 10/14/23 10:57 POC Urine Oxycodone Negative 10/14/23 10:57 POC Urine Methadone Negative 10/14/23 10:57 POC Urine Barbiturates Negative 10/14/23 10:57 POC Urine PCP Negative 10/14/23 10:57 POC Ur Amphetamines Negative 10/14/23 10:57 POC Ur Methamphetamine Negative 10/14/23 10:57 POC Urine MDMA Negative 10/14/23 10:57 POC Ur Benzodiazepine Negative 10/14/23 10:57 POC Urine Cocaine Negative 10/14/23 10:57 POC Ur Marijuana (THC) Negative 10/14/23 10:57 Assessment & Plan Assessment & Plan (1) Opioid use disorder, moderate, in sustained remission: Code(s): F11.21 - Opioid dependence, in remission Plan: -Mass pat reviewed -Suboxone 8mg refill sent to pharmacy -Follow up 8 weeks Orders: Orders AMB 12 Panel Urine Drug Screen Today Z51.81 - Encounter for therapeutic drug level monitoring Medications: Refilled buprenorphine-naloxone 8-2 mg (Suboxone) 1 film sublingual DAILY 30 ea 1RF Coding Level of Care Code Est Pt Level 3 (38254) Diagnoses Opioid use disorder, moderate, in sustained remission F11.21
== END 2023-10-14 11:12 | disposition home or self-care (01) ==
PROVIDERS: PCP Nurse Practitioner Family; Visit Provider Nurse Practitioner Family
DX: F11.21 Opioid dependence, in remission (principal); Z51.81 Encounter for therapeutic drug level monitoring
CPT/HCPCS: 99213

== ENCOUNTER → 2023-10-14 10:39 | Outpatient (BNVA) | payer OTHER, SELFPAY | PROVIDERS: PCP Nurse Practitioner Family; Visit Provider Nurse Practitioner Family | DX: F11.21 Opioid dependence, in remission (principal) | CPT/HCPCS: 80305; 99212 ==

== ENCOUNTER 2023-12-09 13:59 | Outpatient (AMB) | payer OTHER, SELFPAY ==
--- NOTE | 2023-12-09 15:49 | A.OFFVISCC_ITS ---
Intake Visit Reasons: MAT-Tele Allergies No Known Allergies Allergy (Verified 10/14/23 10:50) HPI [facility] MAT-Tele: Details: Patient presents via telehealth for MAT appointment Is taking 8mg suboxone daily and tolerating well Denies concerns for recovery, denies concerns for side effects States he has been keeping busy at work, working 7 days a week Reminded him to take time for self-care and to take care not to burn out Doing well overall [facility] Medical History (Updated 06/17/23 @ 16:37 by JORGE Farr-JOHN) Opioid use disorder Opioid use disorder Asthma Asthma Family History Father Family history of substance abuse Social History Housing: House Alcohol intake: current Patient Tobacco Use Status: Former Tobacco user e-Cigarette/Vaping Use: Never Used service: No Current occupational status: employed Cognitive needs: No Hearing needs: No Vision needs: No Review of Systems Const Reports as per HPI Telehealth Telehealth Telehealth Platform: Telephone Location of provider rendering services: practice address Location of patient: address on file Patient Identification confirmed using: Name, : Yes Telehealth method: voice only Patient verbally consented to treatment: Yes Patient verbally consented to billing insurance company: Yes Patient informed of any privacy concerns related to visit: Yes Minutes spent on Phone/Video with Pt.: 10 Assessment & Plan Assessment & Plan (1) Opioid use disorder, moderate, in sustained remission: Code(s): F11.21 - Opioid dependence, in remission Category: Medical Plan: -Mass pat reviewed -Refill sent to pharmacy -Follow up 8 weeks Medications: Refilled buprenorphine-naloxone 8-2 mg (Suboxone) 1 film sublingual DAILY 30 ea 1RF
== END 2023-12-09 14:06 | disposition home or self-care (01) ==
PROVIDERS: PCP Nurse Practitioner Family; Visit Provider Nurse Practitioner Family
DX: F11.21 Opioid dependence, in remission (principal)
CPT/HCPCS: 99212

== ENCOUNTER → 2023-12-09 13:59 | Outpatient (BNVA) | payer OTHER, SELFPAY | PROVIDERS: PCP Nurse Practitioner Family; Visit Provider Nurse Practitioner Family ==

== ENCOUNTER 2024-03-22 02:12 | Emergency (ER) | payer OTHER, SELFPAY ==
[2024-03-22 02:24] VITALS: BP 115/80; PULSE 77; RESP 18; TEMP 37.2; O2SAT 99; BMI 32.3
[2024-03-22 02:43] LABS: IDNOW Serial# 08D9AD1C; Strep A Nucleic Acid Negative (Negative)
--- NOTE | 2024-03-22 02:45 | PC.NURSE ---
Addendum entered by Lynda Khan RN 03/22/24 02:55: No known sick contacts, no travel, no trauma. Original Note: Pt isv a 43 y/o male who presents for evaluation of a sore throat, difficulty swallowing, head congestion, and bilateral ear pain. Symptoms started approximately 10 days ago. Pt is presently on amoxiciliin, due to take the last dose today. Was prescribed amoxicillin by dentist for a suspected tooth infection. Symtpoms have not improved. Reports intermitient headache and denies difficulty breathing.
--- NOTE | 2024-03-22 02:46 | ED.GENADULT ---
HPI - General Adult General Chief complaint: Ear Problems Stated complaint: Hard time swallowing/ear pain/throat hurts Time Seen by Provider: 03/22/24 02:46 Source: patient Mode of arrival: ambulatory Limitations: no limitations History of Present Illness ED Provider: fabiana SAUCEDO narrative: Patient been congested for last 2 weeks had dental was done feel difficult to swallow and slight sore throat and taking amoxicillin rapid strep test is negative feels ear blocked Related Data Previous Rx's ?Medication ?Instructions ?Recorded naloxone 4 mg/actuation nasal 4 mg intranasal Q2M PRN opioid 06/29/20 spray (Narcan) overdose #2 ea albuterol sulfate 90 mcg/actuation 2 puff inhalation Q4-6H PRN 01/19/23 aerosol inhaler (ProAir HFA) shortness of breath or wheezing #8.5 grams buspirone 7.5 mg tablet 7.5 mg PO BID 30 days #60 tabs 06/26/23 buprenorphine 8 mg-naloxone 2 mg 1 film sublingual DAILY #30 ea 12/09/23 sublingual film (Suboxone) fexofenadine 60 mg-pseudoephedrine 1 tab PO Q12H PRN nasal congestion 03/22/24 ER 120 mg tablet,ext.release,12 hr #20 tabs (Chasidy-D 12 Hour) Allergies Allergy/AdvReac Type Severity Reaction Status Date / Time No Known Allergies Allergy Verified 03/22/24 02:27 Review of Systems Review of Systems: Yes all other systems are reviewed and are negative PMFSH Past Medical History Medical History Opioid use disorder Opioid use disorder Asthma Asthma Family History Family History Father Family history of substance abuse Social History Social History Housing: House Alcohol intake: current Patient Tobacco Use Status: Former Tobacco user e-Cigarette/Vaping Use: Never Used Use of substances other than those prescribed or required for medical reasons: No Advance Directives: No Advance Directives Information Provided: Yes service: No Current occupational status: employed Cognitive needs: No Hearing needs: No Vision needs: No Physical Exam ED Vital Signs: Vital Signs - 24 hr 03/22/24 02:24 03/22/24 03:05 Temperature 98.9 F 98.9 F Pulse Rate 77 77 Respiratory Rate 18 18 Blood Pressure 115/80 115/80 Pulse Oximetry 99 99 Oxygen Delivery Method Room Air Room Air BMI result Body Mass Index 32.3 Appearance: Alert. Oriented X3. No acute distress. ENT: Pharynx normal. Oral Mucosa moist no significant gum swelling no deep caries sinuses nontender postnasal drip+ tonsils normal, no stridor Neck: Normal inspection. Neck supple. CVS: Normal heart rate and rhythm. Pulses normal. Respiratory: No respiratory distress. Equal air entry bilateral, no wheezing/rales/rhonchi Skin: Skin warm and dry. Normal skin color. Normal skin turgor. Extremities: No lower extremity edema. Neuro: Oriented X 3. Medical Decision Making Medical Decision Making [facility] Narrative: Patient with rhinitis likely the cause for throat pain and difficult to swallow because of postnasal drip rapid strep is negative patient already taking amoxicillin will discharge patient Chasidy D allergies Lab Data [facility] Lab Attestation statement: I reviewed the patient's lab results. Labs: Lab Results 03/22/24 Range/Units 02:31 S. pyogenes GrpA ANN Negative (Negative) Discharge Plan Discharge Clinical Impression: Allergic rhinitis Patient Disposition: Home, Self-Care Instructions: Allergic Rhinitis (ED) Additional Instructions: Your symptoms likely from postnasal drip Take Chasidy D daily as prescribed Saline gargles Prescriptions: New fexofenadine-pseudoephedrine [Chasidy-D 12 Hour] 60-120 mg tablet extended release 12 hr 1 tab PO Q12H PRN (Reason: nasal congestion) Qty: 20 0RF No Action buspirone 7.5 mg tablet 7.5 mg PO BID 30 Days Qty: 60 3RF albuterol sulfate [ProAir HFA] 90 mcg/actuation HFA aerosol inhaler 2 puff inhalation Q4-6H PRN (Reason: shortness of breath or wheezing) Qty: 8.5 0RF Narcan 4 mg/actuation spray,non-aerosol 4 mg intranasal Q2M PRN (Reason: opioid overdose) Qty: 2 0RF Rx Instructions: spray 1 dose into ONE nostril; alternate nostrils w each dose until help arrives buprenorphine-naloxone [Suboxone] 8-2 mg film 1 film sublingual DAILY Qty: 30 1RF Interventions: ED Discharge Assessment Last Done: 03/22/24 03:05 Discharge Date/Time: 03/22/24 03:09 Print Language: Wolof
[2024-03-22 03:05] VITALS: BP 115/80; PULSE 77; RESP 18; TEMP 37.2; O2SAT 99
== END 2024-03-22 03:09 | disposition home or self-care (01) ==
PROVIDERS: Emergency Provider Internal Medicine; PCP Nurse Practitioner Family
DX: J30.9 Allergic rhinitis, unspecified (principal); J02.9 Acute pharyngitis, unspecified
CPT/HCPCS: 87651; 99283; 99284

== ENCOUNTER 2024-07-11 12:12 | Emergency (ER) | payer OTHER, SELFPAY ==
--- NOTE | ~2024-07-11 | US_ITS ---
CLINICAL HISTORY: pain, r o infection US Scrotum with Doppler Comparison: None Findings: Right testicle normal size and echotexture, 3.4 x 1.7 x 3.1 cm. Left testicle normal size and echotexture, 3.8 x 1.7 x 2.4 cm. Normal color flow and arterial/venous spectral tracing of both testicles. Hdis-vlebpoc-gpyf-right mild hyperemia in the epididymis. Incidental right-sided epididymal appendix. No varicoceles. No hydroceles. IMPRESSION: No evidence of torsion. Possible mild epididymitis. This document has been electronically signed by: Floyd Vila MD on 07/11/2024 21:25:25
[2024-07-11 12:56] VITALS: BP 114/71; PULSE 87; RESP 18; TEMP 36.5; O2SAT 97; BMI 32.1
--- NOTE | 2024-07-11 12:57 | ED.GENADULT ---
HPI - General Adult General Chief complaint: Urogenital-Male Stated complaint: Trouble urinating Time Seen by Provider: 07/11/24 18:32 Source: patient Limitations: no limitations History of Present Illness ED Provider: Fidelia Francis PA-C HPI narrative: 43-year-old male with a history of prior opiate use disorder currently on methadone, anxiety and depression presents with difficulty urinating x1 month. Denies dysuria, however he states he develops discomfort in his lower abdomen and testicles when he urinates. Denies penile discharge or risk for STD. Denies swelling or redness of the testicles. Denies obvious hematuria or history of kidney stones, no back or flank pain. No fevers at home. Related Data Previous Rx's ?Medication ?Instructions ?Recorded naloxone 4 mg/actuation nasal 4 mg intranasal Q2M PRN opioid 06/29/20 spray (Narcan) overdose #2 ea albuterol sulfate 90 mcg/actuation 2 puff inhalation Q4-6H PRN 01/19/23 aerosol inhaler (ProAir HFA) shortness of breath or wheezing #8.5 grams buspirone 7.5 mg tablet 7.5 mg PO BID 30 days #60 tabs 06/26/23 buprenorphine 8 mg-naloxone 2 mg 1 film sublingual DAILY #30 ea 12/09/23 sublingual film (Suboxone) fexofenadine 60 mg-pseudoephedrine 1 tab PO Q12H PRN nasal congestion 03/22/24 ER 120 mg tablet,ext.release,12 hr #20 tabs (Chasidy-D 12 Hour) levofloxacin 500 mg tablet 500 mg PO DAILY #9 tabs 07/12/24 Allergies Allergy/AdvReac Type Severity Reaction Status Date / Time No Known Allergies Allergy Verified 07/11/24 12:57 Review of Systems Review of Systems: Yes all other systems are reviewed and are negative Constitutional: Constitutional: Denies fatigue and Denies fever(s) Cardiovascular: Cardiovascular: Denies chest pain Gastrointestinal: Gastrointestinal: Denies abdominal pain and Denies nausea Genitourinary: Genitourinary: Denies hematuria, Reports dysuria, Denies flank pain, Denies scrotal swelling and Reports testicular pain Musculoskeletal: Musculoskeletal: Denies back pain Endocrine: Endocrine: Denies fatigue PMFSH Past Medical History Attestation statement: The following information was validated with the patient. Medical History Opioid use disorder Opioid use disorder Asthma Asthma Family History Family History Father Family history of substance abuse Social History Social History Housing: House Alcohol intake: current Patient Tobacco Use Status: Former Tobacco user e-Cigarette/Vaping Use: Never Used Substance Use Type: Opiates service: No Current occupational status: employed Cognitive needs: No Hearing needs: No Vision needs: No Physical Exam ED Vital Signs: Vital Signs - 24 hr 07/11/24 12:56 07/11/24 18:00 07/11/24 22:00 Temperature 97.7 F 98.1 F Pulse Rate 87 77 84 Respiratory Rate 18 18 18 Blood Pressure 114/71 117/72 118/76 Pulse Oximetry 97 99 98 Oxygen Delivery Method Room Air Room Air Room Air BMI result Body Mass Index 32.1 Const Other: Alert, well-appearing Orientation/consciousness: patient oriented x3 Resp Effort & Inspection: normal respiratory effort Cardio Other: Normal peripheral perfusion GI Other: Abdomen is soft, nondistended nontender no guarding Other: Deferred Back/Spine/Pelvis Other: No CVA tenderness Skin Other: Warm dry no rash Neuro General: patient oriented x3, no focal motor deficits and CN's II-XI intact bilaterally Psych Other: Calm cooperative Course Course Course Narrative: This is an RME performed by Sabi Chacon CNP: Additional HPI, ROS, PE not included below will be deferred to primary provider. Patient is a 43-year-old male who presents to the emergency department for evaluation. Reports that he presented to an urgent care yesterday but states they were not able to perform a urinalysis. He has been experiencing urinary frequency particularly at night, he does state that he is drinking 3-4 bottles of water before bed but he is always done this and never had any issues. He also endorses pain to the right groin over 2-3 weeks, also having dysuria. Denies concern for sexually transmitted infection. Denies testicular pain or swelling Plan: Urinalysis, serum labs, CT/NG Medications Administered Discontinued Medications Generic Name Dose Route Start Last Admin Trade Name Freq PRN Reason Stop Dose Admin Levofloxacin 500 mg 07/11/24 22:18 07/11/24 22:25 Levofloxacin 500 Mg Tablet PO 07/11/24 22:19 500 mg ONCE ONE Administration Medical Decision Making Medical Decision Making [facility] Narrative: 43-year-old male with a history of prior opiate use disorder currently on methadone, anxiety and depression presents with difficulty urinating x1 month. Denies dysuria, however he states he develops discomfort in his lower abdomen and testicles when he urinates. Denies penile discharge or risk for STD. Denies swelling or redness of the testicles. Denies obvious hematuria or history of kidney stones, no back or flank pain. No fevers at home. No relevant chronic issues History per patient I have considered the following differential diagnoses: UTI, pyelonephritis, renal colic, torsion, epididymitis, orchitis, STD exposure Plan: The patient is having pain within the testicles when he voids, but no burning with urination to suggest urethritis. We will be obtaining an ultrasound of the scrotal contents to rule out epididymitis/orchitis. He emphatically denies risk for STD. Urine was already obtained and there was no evidence of infection. We will add on GC chlamydia. Thought about torsion, however the patient is not having swelling of his scrotum and he has had symptoms for 1 month. Thought about pyelonephritis, but. Afebrile and no CVA tenderness. Thought about renal colic, however he is not having back pain flank pain, no history of kidney stones, no hematuria, he is well-appearing and he has had symptoms for a month. I have independently reviewed the following tests: Labs: No leukocytosis, not anemic, no electrolyte abnormality, urine not infected, GC gonorrhea pending Ultrasound scrotal contents:Findings: Right testicle normal size and echotexture, 3.4 x 1.7 x 3.1 cm. Left testicle normal size and echotexture, 3.8 x 1.7 x 2.4 cm. Normal color flow and arterial/venous spectral tracing of both testicles. Ldrb-sivgsfw-gibw-right mild hyperemia in the epididymis. Incidental right-sided epididymal appendix. No varicoceles. No hydroceles. IMPRESSION: No evidence of torsion. Possible mild epididymitis. This document has been electronically signed by: Floyd Vila MD on 07/11/2024 21:25:25 Lab Data 07/11/24 13:22 07/11/24 13:22 Labs: Lab Results 07/11/24 07/11/24 07/11/24 Range/Units 13:22 18:57 19:20 WBC 5.8 (4.8-10.8) X10*3/uL RBC 4.69 (4.60-5.80) X10*6/uL Hgb 14.2 (14.0-18.0) g/dl Hct 41.6 L (42.0-52.0) % MCV 88.7 (80.0-98.0) fL MCH 30.3 (27.0-33.0) pg MCHC 34.1 (31.0-36.0) g/dl RDW 11.7 (11.0-16.0) % Plt Count 181 (160-400) X10*3/uL MPV 9.4 (9.4-12.4) fL Immature Gran % (Auto) 0.3 (0.0-0.4) % Neut % (Auto) 61.9 (45-73) % Lymph % (Auto) 27.9 (20-40) % Osborne % (Auto) 9.1 (2-11) % Eos % (Auto) 0.5 (0-4) % Baso % (Auto) 0.3 (0-2) % Lymph # (Auto) 1.6 (1.2-4.9) X10*3/uL Osborne # (Auto) 0.5 (0.1-1.2) X10*3/uL Eos # (Auto) 0.0 (0.0-0.4) X10*3/uL Baso # (Auto) 0.0 (0.0-0.2) X10*3/uL Abs Immat Gran (auto) 0.02 (0.00-0.03) X10*3/uL Absolute Neuts (auto) 3.6 (2.0-8.3) x10*3/uL Absolute Nucleated RBC 0.000 (0.0-0.012) X10*3/uL Nucleated RBC % (auto) 0.0 (0.0-0.2) /100WBC Sodium 143 (135-145) mmol/L Potassium 4.3 (3.3-5.1) mmol/L Chloride 111 H (96-108) mmol/L Carbon Dioxide 26 (22-29) mmol/L Anion Gap 10 L (12-20) BUN 14 (9-16) mg/dL Creatinine 1.01 (0.5-1.4) mg/dL Estim Creat Clear Calc 105.9 Estimated GFR > 60 Random Glucose 76 (60-115) mg/dL Calcium 9.2 (8.4-10.2) mg/dL Total Bilirubin 0.7 (0.0-1.0) mg/dL AST 27 (5-37) U/L ALT 22 (0-40) U/L Alkaline Phosphatase 54 (39-117) U/L Total Protein 7.8 (6.5-8.0) g/dL Albumin 4.2 (3.5-5.0) g/dL Urine Color Yellow Urine Appearance Clear Urine pH 6.0 (5.0-9.0) Ur Specific Roy 1.025 (1.005-1.025) Urine Protein Negative (Neg-Trace) mg/dL Urine Glucose (UA) Negative (Negative) mg/dL Urine Ketones Negative (Negative) mg/dL Urine Blood Negative (Negative) Urine Nitrite Negative (Negative) Ur Leukocyte Esterase Negative (Negative) Chlam trachomat DNA PCR NOT DETECTED (Not Detect.) N.gonorrhoeae DNA (PCR) NOT DETECTED (Not Detect.) Discharge Plan Discharge Clinical Impression: Epididymitis, left Patient Disposition: Home, Self-Care Instructions: Epididymitis (ED) Additional Instructions: You were found to have epididymitis, see home care instructions. Take the levofloxacin as directed, you received a dose in the emergency department tonight, you do not require any additional antibiotic until tomorrow. Thus far, your screening labs were normal, your urine is not infected. However, you have testing pending for gonorrhea and chlamydia, the results we will be completed by tomorrow. I will contact you at home with the findings. Prescriptions: New levofloxacin 500 mg tablet 500 mg PO DAILY Qty: 9 0RF No Action buspirone 7.5 mg tablet 7.5 mg PO BID 30 Days Qty: 60 3RF fexofenadine-pseudoephedrine [Chasidy-D 12 Hour] 60-120 mg tablet extended release 12 hr 1 tab PO Q12H PRN (Reason: nasal congestion) Qty: 20 0RF albuterol sulfate [ProAir HFA] 90 mcg/actuation HFA aerosol inhaler 2 puff inhalation Q4-6H PRN (Reason: shortness of breath or wheezing) Qty: 8.5 0RF Narcan 4 mg/actuation spray,non-aerosol 4 mg intranasal Q2M PRN (Reason: opioid overdose) Qty: 2 0RF Rx Instructions: spray 1 dose into ONE nostril; alternate nostrils w each dose until help arrives buprenorphine-naloxone [Suboxone] 8-2 mg film 1 film sublingual DAILY Qty: 30 1RF Interventions: ED Discharge Assessment Last Done: 07/11/24 22:29 Discharge Date/Time: 07/11/24 22:30 Print Language: Grenadian
[2024-07-11 13:29] LABS: MANUAL DIFF FLAG NO
[2024-07-11 13:30] LABS: Basophils Percent Auto 0.3 % (0-2); Eosinophils Percent Auto 0.5 % (0-4); Hematocrit 41.6 % (42.0-52.0); Hemoglobin 14.2 g/dl (14.0-18.0); Imm Gran Abs Auto 0.02 X10*3/uL (0.00-0.03); Imm Gran Pct Auto 0.3 % (0.0-0.4); Lymphocytes Absolute Auto 1.6 X10*3/uL (1.2-4.9); Lymphocytes Percent Auto 27.9 % (20-40); Mean Corpuscular HGB Conc 34.1 g/dl (31.0-36.0); Mean Corpuscular Hemoglobin 30.3 pg (27.0-33.0); Mean Corpuscular Volume 88.7 fL (80.0-98.0); Mean Platelet Volume 9.4 fL (9.4-12.4); Monocytes Absolute Auto 0.5 X10*3/uL (0.1-1.2); Monocytes Percent Auto 9.1 % (2-11); Neutrophils Absolute Auto 3.6 x10*3/uL (2.0-8.3); Neutrophils Percent Auto 61.9 % (45-73); Platelet Count 181 X10*3/uL (160-400); Red Blood Count 4.69 X10*6/uL (4.60-5.80); Red Cell Distribution Width 11.7 % (11.0-16.0); White Blood Count 5.8 X10*3/uL (4.8-10.8)
[2024-07-11 13:43] LABS: Alanine Aminotransferase 22 U/L (0-40); Albumin Level 4.2 g/dL (3.5-5.0); Alkaline Phosphatase 54 U/L (39-117); Anion Gap 10 (12-20); Aspartate Amino Transferase 27 U/L (5-37); Bilirubin Total 0.7 mg/dL (0.0-1.0); Blood Urea Nitrogen 14 mg/dL (9-16); Calcium 9.2 mg/dL (8.4-10.2); Carbon Dioxide 26 mmol/L (22-29); Chloride 111 mmol/L (96-108); Creatinine Clr Calc Pharmacy 105.9; Estimated Glomerular Filt Rate > 60; Glucose Random 76 mg/dL (60-115); Potassium 4.3 mmol/L (3.3-5.1); Sodium 143 mmol/L (135-145); Total Protein 7.8 g/dL (6.5-8.0)
[2024-07-11 18:00] VITALS: BP 117/72; PULSE 77; RESP 18; O2SAT 99
[2024-07-11 19:04] LABS: Appearance Urine Clear; Color Urine Yellow; Glucose Urine UA Negative (Negative); Leukocyte Esterase Urine Negative (Negative); Nitrite Urine Negative (Negative); Specific Gravity - Urine 1.025 (1.005-1.025); Urine Blood Negative (Negative); Urine Ketones Negative (Negative); Urine Protein Negative (Neg-Trace)
[2024-07-11 22:00] VITALS: BP 118/76; PULSE 84; RESP 18; TEMP 36.7; O2SAT 98
[2024-07-11] MEDS: levoFLOXacin 500 MG TABLET PO (22:25)
[2024-07-11 22:29] VITALS: BP 118/76; PULSE 84; RESP 18; TEMP 36.7; O2SAT 98
[2024-07-12 04:03] LABS: CT PCR NOT DETECTED (Not Detect.); NG PCR NOT DETECTED (Not Detect.)
== END 2024-07-11 22:30 | disposition home or self-care (01) ==
PROVIDERS: Nurse Practitioner Family; Physician Assistant Medical; Emergency Provider Emergency Medicine Emergency Medical Services; PCP Nurse Practitioner Family
DX: N45.1 Epididymitis (principal); R33.9 Retention of urine, unspecified; N50.812 Left testicular pain; R10.2 Pelvic and perineal pain; N50.811 Right testicular pain; Z79.899 Other long term (current) drug therapy
CPT/HCPCS: 36415; 76870; 80053; 81003; 85025; 87491; 87591; 93975; 99284

== ENCOUNTER → 2024-07-11 19:48 | Outpatient (BNV) | payer OTHER, SELFPAY | PROVIDERS: Emergency Provider Emergency Medicine Emergency Medical Services; PCP Nurse Practitioner Family; Visit Provider Radiology Diagnostic Radiology | DX: N50.82 Scrotal pain (principal) | CPT/HCPCS: 93975 ==

== ENCOUNTER 2024-08-17 12:37 | Outpatient (AMB) | payer OTHER, SELFPAY ==
[2024-08-17 12:39] VITALS: BP 110/70; PULSE 70; RESP 20; TEMP 37.1; O2SAT 98; BMI 32.7
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
--- OUTSIDE RECORDS SUMMARY | 2024-08-17 13:31 | XMS_ITS | Patient Health Record ---
Author Organization [facility] Address [address] [place] [phone] Support Name Relationship Address Phone Carmen Maria Guarantor Unknown Unavailable REASON FOR REFERRAL No Information PLAN OF TREATMENT No Information
== END 2024-08-17 13:35 | disposition home or self-care (01) ==
PROVIDERS: PCP Nurse Practitioner Family; Visit Provider Nurse Practitioner Family
DX: Z00.00 Encounter for general adult medical examination without abnormal findings (principal); R07.81 Pleurodynia; R10.32 Left lower quadrant pain

== ENCOUNTER → 2024-08-17 12:37 | Outpatient (BNVA) | payer OTHER, SELFPAY | PROVIDERS: PCP Nurse Practitioner Family; Visit Provider Nurse Practitioner Family | DX: Z00.00 Encounter for general adult medical examination without abnormal findings (principal); R07.81 Pleurodynia; R10.32 Left lower quadrant pain | CPT/HCPCS: 96127; 99396 ==